=== PATIENT | female | born 1975 | race Caucasian/White ===

== ENCOUNTER → 2024-10-21 | Outpatient (CLI) | payer MEDICARE, MEDICAID, SELFPAY ==
[2024-10-21 17:33] LABS: Basophils # (Auto) 0.0 Thou/mm3 (0.0-0.2); Basophils % (Auto) 0 % (0-2.5); Eosinophils # (Auto) 0.1 Thou/mm3 (0.0-0.5); Eosinophils % (Auto) 2 % (0-10); Hematocrit 42.4 % (36.0-46.0); Hemoglobin 14.4 g/dL (12.0-16.0); Immature Granulocytes Auto 0.01 Thou/mm3 (0.00-0.00); Lymphocytes # (Auto) 1.6 Thou/mm3 (1.0-4.8); Lymphocytes % (Auto) 29 % (10-50); Mean Corpuscular HGB Conc 34.0 g/dl (31.0-37.0); Mean Corpuscular Hemoglobin 31.9 pg (25.0-35.0); Mean Corpuscular Volume 94 fL (80-100); Monocytes # (Auto) 0.4 Thou/mm3 (0.0-0.8); Monocytes % (Auto) 8 % (0-12); Neutrophils # (Auto) 3.3 Thou/mm3 (1.8-7.7); Neutrophils % (Auto) 61 % (37-80); Nucleated Red Blood Cell # 0.00 Thou/mm3 (0.00-0.00); Nucleated Red Blood Cell % 0 /100 WBC (0); Platelet Count 313 Thou/mm3 (140-440); RDW Standard Deviation 44.4 fL (36.4-46.3); Red Blood Count 4.51 Miln/mm3 (4.00-5.20); White Blood Count 5.4 Thou/mm3 (3.6-11.0)
[2024-10-21 18:02] LABS: Alanine Aminotransferase 9 U/L (10-49); Albumin, Serum 4.1 gm/dL (3.5-5.0); Albumin/Globulin Ratio 1.5 (1.2-2.2); Alkaline Phosphatase 63 U/L (46-116); Anion Gap 14 (7-16); Aspartate Amino Transferase 16 U/L (0-34); BUN/Creatinine Ratio 20 Ratio (12-20); Bilirubin,Total 0.8 mg/dL (0.3-1.2); Blood Urea Nitrogen 12 mg/dL (9-23); Calcium 9.0 mg/dL (8.3-10.6); Calcium (Corrected) 9.0 mg/dL (8.5-10.1); Carbon Dioxide 24.5 mMol/L (20.0-31.0); Chloride 105 mMol/L (98-107); Creatinine (Component) 0.6 mg/dL (0.6-1.3); Globulin 2.7 gm/dL (2.3-3.5); Glucose 103 mg/dL (74-106); Osmolality,Calculated 284 (275-295); Potassium 3.3 mMol/L (3.4-5.1); Sodium 143 mMol/L (136-145); Total Protein 6.8 gm/dL (5.7-8.2); eGFR > 60 See Note
== END | disposition home or self-care (01) ==
LOC: COPL 16:57
PROVIDERS: PCP Internal Medicine; Referring Provider Internal Medicine; Visit Provider Internal Medicine
DX: G35 Multiple sclerosis (principal); K21.9 Gastro-esophageal reflux disease without esophagitis; Z82.49 Family history of ischemic heart disease and other diseases of the circulatory system
CPT/HCPCS: 36415; 80053; 80061; 81001; 82306; 83036; 84443; 85025

== ENCOUNTER → 2024-10-25 | Outpatient (CLI) | payer MEDICARE, MEDICAID, SELFPAY ==
[2024-10-25 16:17] LABS: Collection Type, Urine Clean Catch
[2024-10-25 17:42] LABS: Bacteria,Urine 3+; Bilirubin,Urine Negative (Negative); Blood,Urine Negative (Negative); Clarity,Urine Turbid (Clear/Hazy); Color,Urine Yellow (Lt Yel-Yel); Glucose, Urine Negative (Negative); Ketones,Urine Negative (Negative); Leukocyte Esterase,Urine Positive (Negative); Nitrite,Urine Positive (Negative); PH,Urine 6.0 (5.0-7.0); Protein,Urine Negative (Neg - Trace); RBC,Urine 4 /hpf (0-3); Specific Gravity,Urine 1.024 (1.001-1.035); Squamous Epithelial Cell,Urine 10 /hpf (0-5); Urobilinogen,Urine Negative mg/dL (0.0-1.0); WBC,Urine 12 /hpf (0-5)
== END | disposition home or self-care (01) ==
LOC: SLDO 15:51
PROVIDERS: PCP Internal Medicine; Referring Provider Internal Medicine; Visit Provider Internal Medicine
DX: G35 Multiple sclerosis (principal); K21.9 Gastro-esophageal reflux disease without esophagitis; Z82.49 Family history of ischemic heart disease and other diseases of the circulatory system
CPT/HCPCS: 81001

== ENCOUNTER → 2024-10-27 | Outpatient (CLI) | payer MEDICARE, MEDICAID, SELFPAY ==
[2024-10-27 16:46] LABS: Collection Type, Urine Clean Catch
[2024-10-27 17:36] LABS: Bacteria,Urine Rare; Bilirubin,Urine Negative (Negative); Blood,Urine Negative (Negative); Clarity,Urine Turbid (Clear/Hazy); Color,Urine Lt-Yellow (Lt Yel-Yel); Glucose, Urine Negative (Negative); Ketones,Urine Negative (Negative); Leukocyte Esterase,Urine Positive (Negative); Nitrite,Urine Positive (Negative); PH,Urine 7.0 (5.0-7.0); Protein,Urine Negative (Neg - Trace); RBC,Urine 1 /hpf (0-3); Specific Gravity,Urine 1.015 (1.001-1.035); Squamous Epithelial Cell,Urine 7 /hpf (0-5); Urobilinogen,Urine Negative mg/dL (0.0-1.0); WBC,Urine 15 /hpf (0-5)
== END | disposition home or self-care (01) ==
LOC: SLDO 16:43
PROVIDERS: PCP Internal Medicine; Referring Provider Internal Medicine; Visit Provider Internal Medicine
DX: R35.0 Frequency of micturition (principal)
CPT/HCPCS: 81001; 87077; 87086; 87186

== ENCOUNTER → 2024-11-07 | Outpatient (CLI) | payer MEDICARE, MEDICAID, SELFPAY ==
[2024-11-07 16:56] LABS: Collection Type, Urine Clean Catch; RBC,Urine 0 /hpf (0-3)
[2024-11-07 17:46] LABS: Bacteria,Urine 4+; Bilirubin,Urine Negative (Negative); Blood,Urine Negative (Negative); Color,Urine Lt-Yellow (Lt Yel-Yel); Glucose, Urine Negative (Negative); Ketones,Urine Negative (Negative); Leukocyte Esterase,Urine Negative (Negative); Nitrite,Urine Negative (Negative); PH,Urine 6.0 (5.0-7.0); Protein,Urine Negative (Neg - Trace); Specific Gravity,Urine 1.016 (1.001-1.035); Squamous Epithelial Cell,Urine 5 /hpf (0-5); Urobilinogen,Urine Negative mg/dL (0.0-1.0); WBC,Urine < 1 /hpf (0-5)
[2024-11-07 17:50] LABS: Clarity,Urine Hazy (Clear/Hazy)
== END | disposition home or self-care (01) ==
LOC: SLDO 16:51
PROVIDERS: PCP Family Medicine; Referring Provider Student in an Organized Health Care Education/Training Program; Visit Provider Student in an Organized Health Care Education/Training Program
DX: N39.0 Urinary tract infection, site not specified (principal)
CPT/HCPCS: 81001; 87086

== ENCOUNTER → 2024-11-25 | Outpatient (CLI) | payer MEDICARE, MEDICAID, SELFPAY ==
[2024-11-25 17:09] LABS: Vitamin D 25 Hydroxy Total 20.4 ng/mL (7.3-40.2)
== END | disposition home or self-care (01) ==
LOC: COPL 15:14
PROVIDERS: PCP Internal Medicine; Referring Provider Internal Medicine; Visit Provider Internal Medicine
DX: E55.9 Vitamin D deficiency, unspecified (principal); I67.9 Cerebrovascular disease, unspecified; G35 Multiple sclerosis; R53.83 Other fatigue
CPT/HCPCS: 36415; 80061; 82306; 83036; 84443

== ENCOUNTER → 2024-11-28 | Outpatient (CLI) | payer MEDICARE, MEDICAID, SELFPAY | END | disposition home or self-care (01) | LOC: SLDO 17:09 | PROVIDERS: PCP Internal Medicine; Referring Provider Internal Medicine; Visit Provider Internal Medicine | DX: N39.0 Urinary tract infection, site not specified (principal) | CPT/HCPCS: 87077; 87086; 87186 ==

== ENCOUNTER → 2024-12-21 | Outpatient (CLI) | payer MEDICARE, MEDICAID, SELFPAY ==
[2024-12-21 10:45] LABS: Collection Type, Urine Clean Catch
[2024-12-21 12:28] LABS: Bacteria,Urine 3+; Bilirubin,Urine Negative (Negative); Blood,Urine Negative (Negative); Calcium Oxalate Crystals,Urine 3+; Glucose, Urine Negative (Negative); Ketones,Urine Negative (Negative); Leukocyte Esterase,Urine Positive (Negative); Nitrite,Urine Positive (Negative); PH,Urine 5.5 (5.0-7.0); Protein,Urine Trace (Neg - Trace); RBC,Urine 3 /hpf (0-3); Specific Gravity,Urine 1.023 (1.001-1.035); Squamous Epithelial Cell,Urine 8 /hpf (0-5); Urobilinogen,Urine Negative mg/dL (0.0-1.0); WBC,Urine 69 /hpf (0-5)
[2024-12-21 12:33] LABS: Clarity,Urine Cloudy (Clear/Hazy); Color,Urine Lt-Yellow (Lt Yel-Yel)
== END | disposition home or self-care (01) ==
LOC: SLDO 10:40
PROVIDERS: PCP Internal Medicine; Referring Provider Internal Medicine; Visit Provider Internal Medicine
DX: N39.0 Urinary tract infection, site not specified (principal)
CPT/HCPCS: 81001; 87077; 87086; 87186

== ENCOUNTER 2025-01-02 07:27 | Inpatient (IN) | payer MEDICARE, MEDICAID, SELFPAY ==
[2025-01-02] VITALS (9 sets, daily range): BP systolic 118–153; BP diastolic 56–85; PULSE 67–133; RESP 18–94; TEMP 36.2–37.1; O2SAT 92–96; BMI 28.6; BMI 30.2
--- NOTE | 2025-01-02 | XR_ITS ---
Examination: MRI of brain without intravenous contrast. MRI brain with intravenous contrast. Date and time of exam:January 02, 2025, 1227 hours, comparison June 25, 2022 INDICATIONS: Diagnosis demyelinating disease, leg weakness cramping body shaking, regional diagnosis MS 20 years ago Technique: Multiple axial and sagittal images of the brain to been obtained. Siemens high-resolution 1.52 Krystina short bore scanner utilized. Sagittal sections, T1 weighted images, TR 500, TE 14, are performed. Axial sections proton-density and T2-weighted images have been obtained. Inversion recovery axial images, TR 9260, TE 111, TR 2500. Diffusion weighted images, axial sections, TR 4800, TE 128, B value 1000. Axial sections, ADC map, TR 4800, TE 128. Axial and coronal images were also obtained post 19 cc gadolinium administered intravenously. Findings:: Enlargement of the sella turcica is not present. The optic chiasm and infundibular stalk are not remarkable. There is no localized enlargement of the medulla or hieu. Fourth ventricle and cerebellar tonsils appear normal in position. No subacute area of hemorrhage density is seen. Fourth ventricle is midline. Mass in the cerebellopontine angle region is not evident. 7th and 8th nerve complexes exhibit symmetry Globes are symmetrical Orbital musculature including medial lateral rectus muscles do not exhibit abnormality Increased white matter signal is prominent Effacement of the cortical sulcal markings is not identified. Mass effect upon the ventricular system is not identified. Diffusion-weighted images demonstrate no focus of restricted diffusion Contrast images demonstrate no abnormal contrast enhancement Impression: No significant change in prominent punctate foci increased signal in the white matter, demyelinating disease
--- NOTE | 2025-01-02 | XR_ITS ---
Examinations: MRA brain with intravenous contrast. MRA neck with intravenous contrast Indications: Onset leg weakness and cramping body shaking tremors one month, diagnosis multiple sclerosis Technique: Multiple axial and sagittal images of the brain have been obtained Siemens high-resolution 1.5 Krystina short bore scanner is utilized. Contrast images have been obtained post intravenous 19 cc Gadolinium. Angiographic images of neck and brain are obtained pre and post contrast. 3-D post processing performed, including brain, extracranial neck arterial maximum intensity projections Findings: No common carotid carotid bifurcation or internal carotid artery stenoses Dominant left vertebral artery Petrous juxtasellar portions internal carotid arteries fill M1 segments middle cerebral arteries middle cerebral artery trifurcation vessels fill as well as basilar artery and posterior cerebral branches No area of aneurysmal dilatation No new vasculature IMPRESSION: No significant neck arterial stenoses No cerebral large vessel arterial occlusions or thrombus
--- NOTE | 2025-01-02 | XR_ITS ---
Examination: MRA neck without contrast TECHNIQUE: MRA brain neck images without intravenous contrast, 3-D angiographic images 3-D postprocessing including maximum projection images Date and time: January 02, 2025, 12:55 PM INDICATIONS: Leg weakness cramping body shaking one month No significant common carotid carotid bifurcation or internal carotid artery stenoses Dominant left vertebral artery in the neck with no critical stenoses IMPRESSION: No significant neck arterial stenoses
--- NOTE | 2025-01-02 07:34 | EKG_ITS ---
[facility] Test Date: 2025-01-02 Pat Name: DOMENIC CHOI Department: Room: - Gender: Female [employer]: : 1975 Requested By: Irma Nj Order Number: [id number] Reading MD: Irma Nj Measurements Intervals [place] Rate: 119 P: 19 [place]: 133 QRS: 21 QRSD: 84 T: 28 QT: 338 QTc: 477 Interpretive Statements SINUS TACHYCARDIA MODERATE ST DEPRESSION [0.05+ mV ST DEPRESSION] Compared to ECG 06/25/2022 14:41:02 ST (T wave) deviation now present Sinus rhythm no longer present Incomplete right bundle-branch block no longer present /store/S0/[id number].pdf
--- NOTE | 2025-01-02 07:42 | XR_ITS ---
Examination: AP chest single view TECHNIQUE: Portable AP sitting chest single view Date and time: December 24 [id number], 0802 hours INDICATIONS: Shortness of breath today. FINDINGS: Atelectasis versus early pneumonia left base Normal heart size The osseous structures are demineralized IMPRESSION: Atelectasis versus early pneumonia left base
--- NOTE | 2025-01-02 07:46 | EDNOTE_ITS ---
ED SOB =RME/HPI General Chief Complaint: Shortness of Breath/Dyspnea Stated Complaint: SOB Time Seen by Provider: 01/02/25 07:31 Arrival date/time: 01/02/25 07:27 RME / HPI RME / HPI Narrative: 49-year-old female here for evaluation of palpitations with shortness of breath that onset about 4:00 this morning. States that she has been dealing with episodes of palpitations on and off the past few weeks. Did have a consult with her clinical operations manager who saw her recently for an EKG. Is planning to send her out for a Holter monitor and cardiac echo though this has not yet been scheduled. Notes that she has also been having some sharp pains to her left breast this morning that lasted for a few seconds and resolved. Feels that in addition to the symptoms increased nervousness and with that her body feels like it is locked up. Notes that this happens sometimes when she feels nervous or when she has MS flares. Related Data Home Medications ?Medication ?Instructions ?Recorded ?Confirmed ibuprofen 800 mg tablet 800 mg PO Q6HR PRN PAIN #0 t abs 07/26/14 06/27/22 lorazepam 0.5 mg tablet 0.5 mg PO BID PRN Anxiety #0 tabs 07/26/14 06/27/22 Allergies Allergy/AdvReac Type Severity Reaction Status Date / Time codeine Allergy Severe VOMITING Verified 06/17/17 06:08 AND HIVES erythromycin base Allergy Severe VOMITING Verified 06/17/17 06:08 AND HIVES adhesive tape Allergy Verified 06/19/17 09:37 promethazine AdvReac Severe PANIC Verified 06/17/17 06:08 ATTACKS hydromorphone AdvReac Intermediate SEVERE Verified 06/17/17 06:08 NAUSEA AND VOMITING morphine AdvReac Unknown SEVERE Verified 06/17/17 06:08 NAUSEA AND VOMITING Ocrevis Allergy Unknown Uncoded 06/29/22 21:04 Review of Systems Review of Systems Systems Reviewed: All systems reviewed, normal except as documented Past Medical History Past Medical History NEUROLOGIC: Positive Multiple Sclerosis HEMATOLOGIC: Positive Anemia PSYCHO/SOCIAL: Positive Anxiety OTHER HISTORY: Positive Autoimmune Disease and Blood Transfusions Family History FAMILY HISTORY: Positive Family Cardiac Disorders and Family Cancer Surgical History SURGICAL: Positive Hysterectomy and Tubal Ligation Social History SMOKING STATUS: Former smoker SECOND HAND EXPOSURE: No ED Exam Narrative Physical exam: Constitutional: Awake, alert, nontoxic, anxious, uncomfortable. HEENT: Normocephalic, atraumatic, extraocular movements intact. Neck: Supple CV: Tachycardic rate and regular rhythm, no murmurs/rubs/gallops Lungs: Clear to auscultation BL, no respiratory distress. Abd: Soft, NT, ND, no HSM noted to palpation Neuro: AAOx3, CN 2-12 GIBL, no acute neuro deficit noted. Skin: Warm, dry, intact Course Course Course Narrative: 0745h: Patient coming in for symptoms of palpitations with feeling short of breath and some sharp chest pains this morning. Patient is noted to be tacky in the 110's, sinus rhythm, initial EKG with no significant acute abnormalities noted. Patient with history of gastric ulcer, multiple sclerosis, and stroke in the past. No known history of CAD. Is followed by clinical operations manager for her palpitations. Initial workup ordered and pending at this time. 0930h: Checked on patient, she notes that her breathing is improved as has the chest pain. Notes that her legs are still quite stiff and this has happened with previous MS flares. Last flare was in 2022 for which she was admitted for high-dose IV steroids. Stating that currently feels that she is having heartburn in [her] neck which she has felt with previous MS flares. Currently awaiting remainder of labs. Will add on MRI brain at this time. Likely will require admission given the worsening symptoms from baseline with the inability to move her legs very well at this time (patient baseline can walk short distances with a walker and uses wheelchair at home). [id number]: I spoke with neurologist Dr. Shaffer, she recommends MRI/MRA of the head/neck. Will wait to decide which steroids to start once results are back. 1350h: I discussed MRI findings with neurologist Dr. Shaffer, she recommends admission and 1g Solumedrol QDAY for the next 3 days. D/w hospitalist team B for admit. Quality Measures none Orders Category Date Time Status COVID-19 Screening Questionnaire NOW Care 01/02/25 13:52 Active National Sales Trainer NOW Care 01/02/25 07:42 Active Continuous Pulse Oximetry NOW Care 01/02/25 07:42 Completed Decision to Admit X1 Care 01/02/25 13:52 Active EKG (ED ONLY) *Do not use* NOW Care 01/02/25 07:34 Completed Insert IV STAT Care 01/02/25 07:42 Active MRI Screening NOW Care 01/02/25 09:36 Active MRI Screening NOW Care 01/02/25 09:36 Completed MRI Screening NOW Care 01/02/25 11:51 Completed MRI Screening NOW Care 01/02/25 11:52 Completed EKG (ED Only) Stat Exams 01/02/25 07:34 Draft MR angio neck w con Stat Exams 01/02/25 Completed MR angio neck wo con Stat Exams 01/02/25 Completed MR head/brain wo/w con Stat Exams 01/02/25 Completed XR chest 1V portable Stat Exams 01/02/25 07:42 Completed B-Type Natriuretic Peptide Stat Lab 01/02/25 07:51 Completed CBC Stat Lab 01/02/25 07:51 Completed CMP [Comprehensive Metabolic Panel] Stat Lab 01/02/25 07:51 Completed D-Dimer Stat Lab 01/02/25 07:51 Completed Drug Screen,Urine Stat Lab 01/02/25 07:42 Ordered Free T4 (Free Thyroxine) Stat Lab 01/02/25 07:51 Completed Magnesium Stat Lab 01/02/25 07:51 Completed Partial Thromboplastin Time Stat Lab 01/02/25 07:51 Completed Prothrombin Time with INR Stat Lab 01/02/25 07:51 Completed Thyroid Stimulating Hormone Stat Lab 01/02/25 07:51 Completed Troponin I Stat Lab 01/02/25 07:51 Completed Troponin I Urgent Lab 01/02/25 09:52 Completed Urinalysis Stat Lab 01/02/25 07:42 Ordered Aspirin Chew Med 01/02/25 07:45 Discontinued 324 mg PO X1 ONE Famotidine Inj [Pepcid Inj] Med 01/02/25 08:10 Discontinued 20 mg IVP X1 ONE Famotidine [Pepcid] Med 01/02/25 07:44 Discontinued 40 mg PO X1 ONE LORazepam [Ativan] Med 01/02/25 07:41 Discontinued 0.5 mg PO X1 ONE MethylPREDNISolone. [SoluMEDROL Inj] 1,000 mg Med 01/02/25 14:00 Active Sodium Chloride 0.9% 250 ml [Ns] 250 ml IV X1 Midazolam Inj [Versed Inj] Med 01/02/25 08:10 Discontinued 1 mg IVP X1 ONE Midazolam Inj [Versed Inj] Med 01/02/25 12:04 Discontinued 1 mg IVP X1 ONE Ondansetron Inj [Zofran Inj] Med 01/02/25 08:10 Discontinued 4 mg IVP X1 ONE Pantoprazole Inj [Protonix Inj] Med 01/02/25 07:44 Discontinued 40 mg IVP X1 ONE Vital Signs Vital signs: Vital Signs Temperature 97.9 F 01/02/25 07:29 Pulse Rate 133 H 01/02/25 07:29 Respiratory Rate 20 01/02/25 07:29 Blood Pressure 153/80 H 01/02/25 07:29 Pulse Oximetry (%) 95 01/02/25 07:29 Oxygen Delivery Method Nasal Cannula 01/02/25 07:29 Shortness of Breath / Dyspnea MDM Narrative MDM Narrative:: Jennie Xiong am scribing for and in the presence of Dr. Marquez. Patient data External records reviewed:: [facility] previous records (I reviewed admission from 06/25/2022 through 06/30/2022 for work-up and management of multiple sclerosis flare versus CVA. ) and EMS form Clinical information provided by:: patient and EMS Social determinants that could affect healthcare access:: none Patient has the following chronic illnesses:: MS How is presenting disease/condition affected by chronic disease/condition?: exacerbated by Evaluation data The following diagnostics were reviewed and interpreted by me:: lab results, radiology exam(s) and EKG tracing(s) (EKG @ 07:33 AM, sinus tachycardia, rate 119, no acute ischemic changes, no STEMI. ) Lab and/or radiology exams considered but not ordered:: None Interpretation Summary: Ordering Physician: Irma Marquez MD Date of Service: 01/02/25 Procedure(s): XR chest 1V portable Accession Number(s): [id number] cc: Barber Ibarra MD; Irma Marquez MD~ Examination: AP chest single view TECHNIQUE: Portable AP sitting chest single view Date and time: December [id number], 0802 hours INDICATIONS: Shortness of breath today. FINDINGS: Atelectasis versus early pneumonia left base Normal heart size The osseous structures are demineralized IMPRESSION: Atelectasis versus early pneumonia left base Dictated By: Barber Ibarra MD Signed By: <Electronically signed by Barber Ibarra MD in OV>01/02/25 0900 Ordering Physician: Irma Marquez MD Date of Service: 01/02/25 Procedure(s): MR head/brain wo/w con Accession Number(s): [id number] cc: Zach Pacheco; Barber Ibarra MD; Irma Marquez MD~ Examination: MRI of brain without intravenous contrast. MRI brain with intravenous contrast. Date and time of exam:January 02, 2025, 1227 hours, comparison June 25, 2022 INDICATIONS: Diagnosis demyelinating disease, leg weakness cramping body shaking, regional diagnosis MS 20 years ago Technique: Multiple axial and sagittal images of the brain to been obtained. Siemens high-resolution 1.52 Krystina short bore scanner utilized. Sagittal sections, T1 weighted images, TR 500, TE 14, are performed. Axial sections proton-density and T2-weighted images have been obtained. Inversion recovery axial images, TR 9260, TE 111, TR 2500. Diffusion weighted images, axial sections, TR 4800, TE 128, B value 1000. Axial sections, ADC map, TR 4800, TE 128. Axial and coronal images were also obtained post 19 cc gadolinium administered intravenously. Findings:: Enlargement of the sella turcica is not present. The optic chiasm and infundibular stalk are not remarkable. There is no localized enlargement of the medulla or hieu. Fourth ventricle and cerebellar tonsils appear normal in position. No subacute area of hemorrhage density is seen. Fourth ventricle is midline. Mass in the cerebellopontine angle region is not evident. 7th and 8th nerve complexes exhibit symmetry Globes are symmetrical Orbital musculature including medial lateral rectus muscles do not exhibit abnormality Increased white matter signal is prominent Effacement of the cortical sulcal markings is not identified. Mass effect upon the ventricular system is not identified. Diffusion-weighted images demonstrate no focus of restricted diffusion Contrast images demonstrate no abnormal contrast enhancement Impression: No significant change in prominent punctate foci increased signal in the white matter, demyelinating disease Dictated By: Barber Ibarra MD Signed By: <Electronically signed by Barber Ibarra MD in OV> 01/02/25 133 Ordering Physician: Irma Marquez MD Date of Service: 01/02/25 Procedure(s): MR angio neck wo con Accession Number(s): [id number] cc: Zach Pacheco; Barber Ibarra MD; Irma Marquez MD~ Examinations: MRA brain with intravenous contrast. MRA neck with intravenous contrast Indications: Onset leg weakness and cramping body shaking tremors one month, diagnosis multiple sclerosis Technique: Multiple axial and sagittal images of the brain have been obtained Siemens high-resolution 1.5 Krystina short bore scanner is utilized. Contrast images have been obtained post intravenous 19 cc Gadolinium. Angiographic images of neck and brain are obtained pre and post contrast. 3-D post processing performed, including brain, extracranial neck arterial maximum intensity projections Findings: No common carotid carotid bifurcation or internal carotid artery stenoses Dominant left vertebral artery Petrous juxtasellar portions internal carotid arteries fill M1 segments middle cerebral arteries middle cerebral artery trifurcation vessels fill as well as basilar artery and posterior cerebral branches No area of aneurysmal dilatation No new vasculature IMPRESSION: No significant neck arterial stenoses No cerebral large vessel arterial occlusions or thrombus Dictated By: Barber Ibarra MD Signed By: <Electronically signed by Barber Ibarra MD in OV> 01/02/25 1333 Ordering Physician: Irma Marquez MD Date of Service: 01/02/25 Procedure(s): MR angio neck w con Accession Number(s): [id number] cc: Zach Pacheco; Barber Ibarra MD; Irma Marquez MD~ Examination: MRA neck without contrast TECHNIQUE: MRA brain neck images without intravenous contrast, 3-D angiographic images 3-D postprocessing including maximum projection images Date and time: January 02, 2025, 12:55 PM INDICATIONS: Leg weakness cramping body shaking one month No significant common carotid carotid bifurcation or internal carotid artery stenoses Dominant left vertebral artery in the neck with no critical stenoses IMPRESSION: No significant neck arterial stenoses Dictated By: Barber Ibarra MD Signed By: <Electronically signed by Barber Ibarra MD in OV> 01/02/25 1335 Medications / Prescriptions Medications or Prescriptions considered but not ordered:: None Medication administrations:: Medication Administration History Methylprednisolone Sodium Succinate 1,000 mg/ Sodium Chloride 266 mls @ 266 mls/hr IV X1 ONE Stop: 01/02/25 14:59 Discontinued Medications Aspirin (Aspirin 81 Mg Chew) 324 mg PO X1 ONE Stop: 01/02/25 07:46 Last Admin: 01/02/25 07:59 Dose: Not Given Documented By: HARPREET Non-Admin Reason: Patient Refused Famotidine (Famotidine 20 Mg Tablet) 40 mg PO X1 ONE Stop: 01/02/25 07:45 Last Admin: 01/02/25 08:00 Dose: Not Given Documented By: HARPREET Non-Admin Reason: Patient Refused Famotidine (Famotidine Inj 10 Mg/Ml Vial 2 Ml) 20 mg IVP X1 ONE Stop: 01/02/25 08:11 Last Admin: 01/02/25 08:31 Dose: 20 mg Documented By: MASTER Lorazepam (Lorazepam 0.5 Mg Tablet) 0.5 mg PO X1 ONE Stop: 01/02/25 07:42 Last Admin: 01/02/25 08:00 Dose: Not Given Documented By: HARPREET Non-Admin Reason: Patient Refused Midazolam HCl (Midazolam Inj 1 Mg/Ml Vial 2 Ml) 1 mg IVP X1 ONE Stop: 01/02/25 08:11 Last Admin: 01/02/25 08:31 Dose: 1 mg Documented By: ARF Midazolam HCl (Midazolam Inj 1 Mg/Ml Vial 2 Ml) 1 mg IVP X1 ONE Stop: 01/02/25 12:05 Last Admin: 01/02/25 12:11 Dose: 1 mg Documented By: DB Ondansetron HCl (Ondansetron Inj 2 Mg/Ml Inj 2 Ml) 4 mg IVP X1 ONE; Protocol Stop: 01/02/25 08:11 Last Admin: 01/02/25 08:30 Dose: 4 mg Documented By: ARF Pantoprazole Sodium (Pantoprazole Inj 40 Mg Vial) 40 mg IVP X1 ONE Stop: 01/02/25 07:45 Last Admin: 01/02/25 07:56 Dose: 40 mg Documented By: DB See above Consultations Consultation(s) initiated? (list below): Yes Consultation #1 (Physician, Specialty, Details): See course Diagnosis Shortness of Breath Differential Diagnosis: community acquired pneumonia, pulmonary embolism and other (Chest pain ) Most likely diagnosis given after review of the tests above:: MS flare Admission Indicated Admission indicated?: indicated Admission Request Was there a request for admission?: Yes Admission Attestation Admission request attestation: Discussed case with [] from Hospitalist service regarding admission. Discussed patients ED course, exam findings, labs, and radiology results. The Hospitalist [agrees,declines] to accept the patient for admission. Disposition Plan Disposition Plan: Admit Discharge Plan Plan Patient Disposition: Admit Acute Care w/in Hospital Prescriptions/Referrals Prescriptions/Med Rec: No Action ibuprofen 800 MG tablet 800 mg PO Q6HR PRN (Reason: PAIN) Qty: 0 lorazepam 0.5 MG tablet 0.5 mg PO BID PRN (Reason: Anxiety) Qty: 0 Referrals: Zach Pacheco [Primary Care Provider] - In 1 week Problem List Clinical Impression: Exacerbation of multiple sclerosis Patient/Caregiver Discharge Instructions Print Language: [place] Stand Alone Forms: Rissa Award Info., Patient Portal Info Letter
[2025-01-02 08:04] LABS: Basophils # (Auto) 0.0 Thou/mm3 (0.0-0.2); Basophils % (Auto) 1 % (0-2.5); Eosinophils # (Auto) 0.0 Thou/mm3 (0.0-0.5); Eosinophils % (Auto) 1 % (0-10); Hematocrit 44.9 % (36.0-46.0); Hemoglobin 15.1 g/dL (12.0-16.0); Immature Granulocytes Auto 0.01 Thou/mm3 (0.00-0.00); Lymphocytes # (Auto) 1.4 Thou/mm3 (1.0-4.8); Lymphocytes % (Auto) 24 % (10-50); Mean Corpuscular HGB Conc 33.6 g/dl (31.0-37.0); Mean Corpuscular Hemoglobin 31.6 pg (25.0-35.0); Mean Corpuscular Volume 94 fL (80-100); Monocytes # (Auto) 0.6 Thou/mm3 (0.0-0.8); Monocytes % (Auto) 10 % (0-12); Neutrophils # (Auto) 3.8 Thou/mm3 (1.8-7.7); Neutrophils % (Auto) 65 % (37-80); Nucleated Red Blood Cell # 0.00 Thou/mm3 (0.00-0.00); Nucleated Red Blood Cell % 0 /100 WBC (0); Platelet Count 365 Thou/mm3 (140-440); RDW Standard Deviation 46.0 fL (36.4-46.3); Red Blood Count 4.78 Miln/mm3 (4.00-5.20); White Blood Count 5.8 Thou/mm3 (3.6-11.0)
[2025-01-02 08:20] LABS: B-Type Natriuretic Peptide < 20 pg/mL (0-100)
[2025-01-02] MEDS: ONDANSETRON INJ 2 MG/ML INJ 2 ML 4 MG IVP (08:30)
[2025-01-02] MEDS: FAMOTIDINE INJ 10 MG/ML VIAL 2 ML 20 MG IVP (08:31)
[2025-01-02] MEDS: MIDAZOLAM INJ 1 MG/ML VIAL 2 ML IVP ×2 (08:31→12:11)
[2025-01-02 08:33] LABS: Alanine Aminotransferase 9 U/L (10-49); Albumin, Serum 4.4 gm/dL (3.5-5.0); Albumin/Globulin Ratio 1.8 (1.2-2.2); Alkaline Phosphatase 58 U/L (46-116); Anion Gap 13 (7-16); Aspartate Amino Transferase 15 U/L (0-34); BUN/Creatinine Ratio 9 Ratio (12-20); Bilirubin,Total 0.8 mg/dL (0.3-1.2); Blood Urea Nitrogen 7 mg/dL (9-23); Calcium 9.8 mg/dL (8.3-10.6); Calcium (Corrected) 9.8 mg/dL (8.5-10.1); Carbon Dioxide 21.3 mMol/L (20.0-31.0); Chloride 107 mMol/L (98-107); Creatinine (Component) 0.8 mg/dL (0.6-1.3); Estimated Creatinine Clearance 99.5 mL/min (>60); Globulin 2.5 gm/dL (2.3-3.5); Glucose 109 mg/dL (74-106); Magnesium 1.9 mg/dL (1.6-2.6); Osmolality,Calculated 280 (275-295); Potassium 3.6 mMol/L (3.4-5.1); Sodium 141 mMol/L (136-145); Total Protein 6.9 gm/dL (5.7-8.2); Troponin I < 0.002 ng/mL (0.0-0.045); eGFR > 60 See Note
[2025-01-02 08:45] LABS: INR 1.0 (0.9-1.3); Partial Thromboplastin Time 29.3 Seconds (22.0-36.0); Prothrombin Time 10.5 Seconds (9.0-12.2)
[2025-01-02 09:38] LABS: D-Dimer < 250 ng/mL (<600)
[2025-01-02 10:03] LABS: Free T4 (Free Thyroxine) 1.24 ng/dL (0.89-1.76); Thyroid Stimulating Hormone 2.70 uIU/mL (0.55-4.78)
[2025-01-02 10:30] LABS: Troponin I < 0.020 ng/mL (0.0-0.045)
--- NOTE | 2025-01-02 15:09 | ESHP_ITS ---
<Statement entered by Damian Rachel MD - 01/03/25 17:11> I have personally seen and examined the patient, agree with residents assessment and plan Patient plan of care was discussed with the attending physician, Dr. Gosia Rachel, PGY2 Documentation for date of: 01/02/25 HPI History of Present Illness History of present illness: Patient is a 49-year-old female with past medical history of multiple sclerosis since 2002, migraines, recurrent UTIs who presents on 01/02 for chief complaint of shortness of breath that started around 4 AM this morning, accompanied with locking of her extremities. Reports similar episodes during previous MS flares, last episode 2022. Follows Dr. Wilks at [facility], attempted new IV drip a couple months ago but experienced adverse reaction and was discontinued. Also reports history of CVA but was ruled out at last admission in 06/2023. Endorses residual left sided weakness, with intermittent freezing of her extremities. Otherwise independent and ambulatory with walker at home. Of note, patient has also been experiencing urinary urgency with foul smelling urine for the past 3 weeks. Was treated with 2 full courses of Macrobid and another 7 day course of Bactrim (was only able to tolerate 4 days). Patient has urinary incontinence and decreased sensation below her hips secondary to her MS, wears diapers at home. Endorses accompanying intermittent palpitations for the past couple of weeks. Saw Dr. Lowry within the past couple of weeks, was to be put on Holter monitor and obtain echo at her next upcoming appointment. Denies chest pain at this time. ED Course: -Initial vitals were BP 153/80, HR 133, afebrile, saturating well on room air -Labs significant for CBC unremarkable. CMP unremarkable. Troponins are negative. TSH and T4 within normal limits. EKG shows sinus tachycardia. No ST or T wave abnormalities noted. -Imaging included brain MRI shows repeat pattern of demyelinating disease. Neck MRA negative for stenosis. CXR concerning for possible atelectasis versus left base pneumonia. -In the ED, patient was given Protonix x 1, Zofran x 1, famotidine, midazolam 1 mg x 2. -Patient was admitted for MS flare. Review of Systems Review of systems otherwise negative except what is mentioned above. Past Medical History: As above. Surgical History: Hysterectomy. Social History: Former social smoker, quit 20 years ago. Denies current alcohol use, occasionally uses marijuana Current Medications: pending official med rec Allergies: Codeine (vomiting and hives), erythromycin base, adhesive tape, promethazine (panic attacks), hydromorphone and morphine (severe nausea vomiting) Exam Vital Signs Temp Pulse Resp BP Pulse Ox O2 Del Method 98.1 F 94 18 118/77 95 Room Air 01/02/25 13:00 01/02/25 13:00 01/02/25 13:00 01/02/25 13:00 01/02/25 13:00 01/02/25 13:00 Narrative Exam Physical Exam General: Awake, in mild distress secondary to pain from flare. Conversational and non-toxic appearing. Tearful and anxious. HEENT: Normocephalic, atraumatic, mucous membranes moist. Heart: Tachycardic. Regular rate and rhythm, normal S1 and S2, no murmurs. Lungs: Clear to auscultation with no wheezing or crackles. Abdomen: Soft, nondistended, nontender, positive bowel sounds. No guarding or rebound tenderness. Neurologic: Alert and oriented x3. Unable to move lower extremities, rigid. Left upper extremity contracted, chronic. 5/5 strength in right upper extremity. Sensation intact throughout. Extremities: Swollen ankles bilaterally but no pitting edema appreciated. Skin: No rash or ecchymoses. Results: Labs 01/03/25 04:35 01/03/25 04:35 Labs: Short CBC 01/02/25 Range/Units 07:51 WBC 5.8 (3.6-11.0) Thou/mm3 Hgb 15.1 (12.0-16.0) g/dL Hct 44.9 (36.0-46.0) % Plt Count 365 (140-440) Thou/mm3 BMP 01/02/25 07:51 Sodium 141 Potassium 3.6 Chloride 107 Carbon Dioxide 21.3 BUN 7 L Creatinine 0.8 Glucose 109 H Calcium 9.8 Cardiac Enzymes 01/02/25 01/02/25 Range/Units 07:51 09:52 Troponin I < 0.002 < 0.020 (0.0-0.045) ng/mL Liver Function 01/02/25 Range/Units 07:51 Total Bilirubin 0.8 (0.3-1.2) mg/dL AST 15 (0-34) U/L ALT 9 L (10-49) U/L Alkaline Phosphatase 58 (46-116) U/L Albumin 4.4 (3.5-5.0) gm/dL Quality Measures Quality Measures none Medications Home Medications and Allergies Home Medications ?Medication ?Instructions ?Recorded ?Confirmed ?Type ibuprofen 800 mg tablet 800 mg PO Q6HR PRN PAIN #0 t abs 07/26/14 01/02/25 History lorazepam 0.5 mg tablet 0.5 mg PO BID PRN Anxiety #0 tabs 07/26/14 01/02/25 History ergocalciferol (vitamin D2) 1,250 PO .once a week 12/06 12/29 History mcg (50,000 unit) capsule fluconazole 150 mg tablet mg 01/02/25 History nitrofurantoin 01/02/25 History monohydrate/macrocrystals 100 mg capsule pantoprazole 40 mg tablet,delayed mg PO .once a day History release sulfamethoxazole 800 tab 01/02/25 History mg-trimethoprim 160 mg tablet Allergies Allergy/AdvReac Type Severity Reaction Status Date / Time codeine Allergy Severe VOMITING Verified 06/17/17 06:08 AND HIVES erythromycin base Allergy Severe VOMITING Verified 06/17/17 06:08 AND HIVES adhesive tape Allergy Verified 06/19/17 09:37 promethazine AdvReac Severe PANIC Verified 06/17/17 06:08 ATTACKS hydromorphone AdvReac Intermediate SEVERE Verified 06/17/17 06:08 NAUSEA AND VOMITING morphine AdvReac Unknown SEVERE Verified 06/17/17 06:08 NAUSEA AND VOMITING Ocrevis Allergy Unknown Uncoded 06/29/22 21:04 Visit Medications Acetaminophen (Acetaminophen 325 Mg Tablet) 650 mg PO Q6H PRN PRN Reason: Fever >101.5 or pain 1-3 Stop: 02/01/25 15:03 Heparin Sodium (Porcine) (Heparin Sod Inj 5000 Unit/Ml Vial) 5,000 unit SC Q12HR ELVER Stop: 01/16/25 20:59 Ondansetron HCl (Ondansetron Inj 2 Mg/Ml Inj 2 Ml) 4 mg IVP Q6H PRN; Protocol PRN Reason: NAUSEA OR VOMITING Stop: 02/01/25 15:03 Pantoprazole Sodium (Pantoprazole 40 Mg Tablet) 40 mg PO QDAY ELVER Stop: 02/02/25 08:59 Discontinued Medications Aspirin (Aspirin 81 Mg Chew) 324 mg PO X1 ONE Stop: 01/02/25 07:46 Last Admin: 01/02/25 07:59 Dose: Not Given Famotidine (Famotidine 20 Mg Tablet) 40 mg PO X1 ONE Stop: 01/02/25 07:45 Last Admin: 01/02/25 08:00 Dose: Not Given Famotidine (Famotidine Inj 10 Mg/Ml Vial 2 Ml) 20 mg IVP X1 ONE Stop: 01/02/25 08:11 Last Admin: 01/02/25 08:31 Dose: 20 mg Methylprednisolone Sodium Succinate 1,000 mg/ Sodium Chloride 266 mls @ 266 mls/hr IV X1 ONE Stop: 01/02/25 14:59 Last Admin: 01/02/25 15:01 Dose: Not Given Lorazepam (Lorazepam 0.5 Mg Tablet) 0.5 mg PO X1 ONE Stop: 01/02/25 07:42 Last Admin: 01/02/25 08:00 Dose: Not Given Midazolam HCl (Midazolam Inj 1 Mg/Ml Vial 2 Ml) 1 mg IVP X1 ONE Stop: 01/02/25 08:11 Last Admin: 01/02/25 08:31 Dose: 1 mg Midazolam HCl (Midazolam Inj 1 Mg/Ml Vial 2 Ml) 1 mg IVP X1 ONE Stop: 01/02/25 12:05 Last Admin: 01/02/25 12:11 Dose: 1 mg Ondansetron HCl (Ondansetron Inj 2 Mg/Ml Inj 2 Ml) 4 mg IVP X1 ONE; Protocol Stop: 01/02/25 08:11 Last Admin: 01/02/25 08:30 Dose: 4 mg Pantoprazole Sodium (Pantoprazole Inj 40 Mg Vial) 40 mg IVP X1 ONE Stop: 01/02/25 07:45 Last Admin: 01/02/25 07:56 Dose: 40 mg Assessment & Plan Plan Patient is a 49-year-old female with past medical history of multiple sclerosis since 2002, migraines, recurrent UTIs who presents on 01/02 for chief complaint of shortness of breath that started around 4 AM this morning, accompanied with locking of her extremities. Admitted for MS flare, will be treated with IV steroids. #Multiple sclerosis flare #Hx MS since 2002 Presented with shortness of breath and rigid extremities. Per patient, symptoms are similar to prior flareup episodes of MS, last episode 2022. Has been diagnosed with MS since 2002, previous MRI workup completed and confirms diagnosis. Follows Dr. Wilks at [facility], currently not on any treatment. Repeat MRI confirms demyelinating disease, no acute changes concerning for stroke. Neck MRI negative for stenosis. Plan: ? IV Solu-Medrol 1 g daily over 4 hours per neurology recommendations ? Neurology Dr. Shaffer consulted, appreciate recommendations ? Physical therapy consulted ? Lipid panel pending #UTI likely secondary to gram-negative bacteria #?Nephrolithiasis Endorses urinary frequency and foul smelling urine for the past 3 weeks. Completed 2 full courses of Macrobid and half a course of Bactrim without improvement. By PCP, was told there is concern for renal stone. WBC WNL. UA on 12/21 shows calcium oxalate crystals with elevated WBC and 3+ bacteria, previously grew E. coli, pansensitive. Note patient is urinary incontinent, placing her at increased risk for UTIs. Also had no sensation below her hips. Plan: ? Pending UA and urine culture ? CT abdomen pelvis without contrast ordered ? Hold antibiotics at this time # Heart palpitations Endorses intermittent palpitations for the past couple weeks. Had seen Dr. Lowry previously, was to be placed on Holter monitor and obtain echo outpatient on next upcoming appointment. Continues to endorse palpitations and chest pressure today, otherwise no chest pain. Possibly secondary to MS versus anxiety. Troponin negative. EKG showed sinus tachycardia with no ST or T wave abnormalities. Plan: ?Ordered echo ?Telemetry # History of anxiety # History of migraines # History of GERD Chronic medical issues. Takes Ativan 0.5 mg as needed for anxiety and ibuprofen for migraines at home. ?Ativan 0.5 mg nightly ?Tylenol as needed ?Protonix daily Health Maintenance Disposition: Telemetry DVT prophylaxis: Heparin GI prophylaxis: Protonix Diet: Regular CODE STATUS: Limited, refused chest compressions Patient plan of care was discussed with the resident Dr Rachel and the attending physician, Dr. Elise. Elena Perez, PGY-1 Attending Provider Attestation/Addendum I have discussed and was present for the essential components of the history, physical examination, diagnosis, and treatment plan with the resident. I agree with the patient's care as documented by the resident and amended herein by me. Warner Elise DO. Although this document has been carefully reviewed, there may still be some phonetic and other typographical errors. These errors are purely grammatical due to imperfections in the software program and should not be construed in any way to compromise the substance of the patient's medical care during this visit.
--- NOTE | 2025-01-02 16:08 | ECHO_ITS ---
Transthoracic Echo Report Ht (in): 69 Wt (lb): 194 Exam Location: Echo Lab Status: Inpatient Watch Train Assembler: Aliyah Felder Indications: Procedure Performed: BP: 108 / 79 HR: MEASUREMENTS (Male / Female) Normal Values 2D ECHO LV Diastolic Diameter PLAX 4.6 cm 4.2 - 5.9 / 3.9 - 5.3 cm LV Systolic Diameter PLAX 3.1 cm IVS Diastolic Thickness 1.0 cm 0.6 - 1.0 / 0.6 - 0.9 cm LVPW Diastolic Thickness 0.9 cm 0.6 - 1.0 / 0.6 - 0.9 cm LV Relative Wall Thickness 0.4 LVOT Diameter 1.9 cm Ascending Aorta Diameter 3.0 cm M-MODE AV Cusp Separation MM 0.8 cm DOPPLER AV Peak Velocity 143.0 cm/s AV Peak Gradient 8.2 mmHg AV Mean Gradient 4.0 mmHg AV Velocity Time Integral 31.8 cm LVOT Peak Velocity 133.0 cm/s LVOT Peak Gradient 7.1 mmHg LVOT Velocity Time Integral 31.4 cm AV Area Cont Eq vti 2.8 cm? AV Area Cont Eq pk 2.6 cm? MV Area PHT 3.0 cm? Mitral E Point Velocity 67.5 cm/s Mitral A Point Velocity 66.5 cm/s Mitral E to A Ratio 1.0 LV E' Lateral Velocity 8.4 cm/s Mitral E to LV E' Lateral Ratio 8.1 LV E' Septal Velocity 7.3 cm/s Mitral E to LV E' Septal Ratio 9.3 TR Peak Velocity 183.0 cm/s TR Peak Gradient 13.4 mmHg PV Peak Velocity 117.0 cm/s PV Peak Gradient 5.5 mmHg FINDINGS Left Ventricle Normal left ventricular size, wall thickness, hyperdynamic systolic function. Normal left ventricular diastolic filling pattern for age. The ejection fraction is visually estimated at 65-70 %. Right Ventricle The right ventricle is normal in size and systolic function. Left Atrium The left atrium is normal by two-dimensional, color flow and Doppler imaging with no structural abnormalities, no thrombus formation present. Right Atrium The right atrium is normal by two-dimensional imaging, color flow and Doppler imaging with no structural abnormalities, no thrombus formation present. Atrial Septum The interatrial septum appears normal with no evidence of a shunt. Aorta The aorta is normal by two-dimensional, color flow and Doppler interrogation. Mitral Valve The mitral valve is mildly prolapse. No mitral regurgitation. Aortic Valve The aortic valve is trileaflet and normal by two-dimensional, color flow and Doppler interrogation. There is no significant aortic valve regurgitation. Tricuspid Valve The tricuspid valve is normal by two-dimensional, color flow and Doppler interrogation.there is trace tricuspid valve regurgitation. Pulmonic Valve The pulmonic valve is not well visualized. There is no significant pulmonic valve regurgitation. Vessels The pulmonary artery appears normal. The inferior vena cava pulmonary and hepatic veins appear normal. Pericardium Trace pericardial effusion without cardiac tamponade CONCLUSIONS Indication: Normal left ventricular size. Hyperdynamic systolic function. Estimated Ef 65-70% Normal right ventricular size and function. Trace tricuspid regurgitation noted. Geovanna Henning (Electronically Signed) Final Date: 03 January 2025 18:44
--- NOTE | 2025-01-02 16:32 | XR_ITS ---
Examination: CT abdomen and pelvis without contrast. Coronal 3-D reconstructions. Sagittal 2-D reconstructions. Date and time of exam:January 02, 2025, 1735 hrs. Indications: Flank pain today CTDI: vol (mGy): 11.9 DLP: (mGycm): 683 Technique: Axial images of the abdomen have been obtained, 3 mm slice thickness Intravenous contrast material has not been administered. Low dose protocols were performed. One or more of the following dose reduction techniques were used; automated exposure control, adjustment of the mA and/or KV according to patient size, use of iterative reconstruction technique. Findings: No visualized liver or splenic lesions Gallbladder not visualized No pancreatic mass Mild renal scar formation No renal or ureteral calculi, no hydronephrosis Aorta normal size No pericecal inflammatory change No bowel obstruction No diverticulitis Absent uterus No bladder mass or bladder calculi Moderate osteopenia Impression: Mild renal parenchymal scar formation No renal or ureteral calculi, no hydronephrosis No CT findings of appendicitis bowel obstruction or diverticulitis
[2025-01-02 16:47] LABS: Cardiac Risk Estimate 4.5 RATIO (3.7-5.6); Cholesterol 220 mg/dL (132-200); HDL Cholesterol 49 mg/dL (40-60); LDL Cholesterol,Calculated 137 mg/dL (0-130); Triglycerides 170 mg/dL (30-150)
[2025-01-02 18:07] LABS: Collection Type, Urine Clean Catch
[2025-01-02] MEDS: ACETAMINOPHEN 325 MG TABLET 650 MG PO (18:08)
[2025-01-02] MEDS: MethylPREDNISolone. 1,000 MG in SODIUM CHLORIDE 0.9% 250 ML 250 ML 66.5 MG IV (18:14)
[2025-01-02 18:28] LABS: Bacteria,Urine 2+; Bilirubin,Urine Negative (Negative); Blood,Urine Negative (Negative); Clarity,Urine Clear (Clear/Hazy); Color,Urine Yellow (Lt Yel-Yel); Glucose, Urine Negative (Negative); Hyaline Casts,Urine < 1 /hpf (0-1); Ketones,Urine 3+ (Negative); Leukocyte Esterase,Urine Negative (Negative); Nitrite,Urine Negative (Negative); PH,Urine 6.0 (5.0-7.0); Protein,Urine Negative (Neg - Trace); RBC,Urine 3 /hpf (0-3); Specific Gravity,Urine 1.038 (1.001-1.035); Squamous Epithelial Cell,Urine 6 /hpf (0-5); Urobilinogen,Urine Negative mg/dL (0.0-1.0); WBC,Urine 1 /hpf (0-5)
[2025-01-02 19:02] LABS: Amphetamine/Methamp Scrn,U Negative (Negative); Barbiturate Screen,Urine Negative (Negative); Benzodiazepines Screen,Urine Positive (Negative); Benzoylecgonine Screen, Ur Negative (Negative); Fentanyl Screen,Urine Negative (Negative); Opiate Screen,Urine Negative (Negative); THC Screen,Urine Negative (Negative)
[2025-01-02] MEDS: HEPARIN SOD INJ 5000 UNIT/ML VIAL SC (20:52)
--- NOTE | 2025-01-02 22:49 | ESCONSULT_ITS ---
History of Present Illness Data of Consult Requesting Physician: Ruddy Elise DO Primary Care Provider: Zach Pacheco Consult Narrative History of present illness: Patient is a 49-year-old female with history of multiple sclerosis since 2002, migraines, recurrent UTIs presented to the ER with chief complaint of severe chest pain associated with shortness of breath that started around 4 AM this morning, accompanied with locking of her extremities. Reports similar episodes during previous MS flares, last episode 2022. Follows Dr. Wilks at [facility], last seen a month ago. Tried Ocrevus infusion couple of months ago but experienced adverse reaction manifesting as shortness of breath and was discontinued. Also reports history of CVA but was ruled out at last admission in 06/2023 with residual left-sided weakness. She does complain of intermittent freezing of her extremities. Tries to be independent and walks with walker at home. She also complains of urinary urgency with foul odor in urine for the past 3 weeks. Was treated with 2 full courses of Macrobid and another 7 day course of Bactrim (was only able to tolerate 4 days). Patient has urinary incontinence and decreased sensation below her hips secondary to her MS, wears diapers at home. Workup in the ER: -Vitals: BP 153/80, HR 133, afebrile, saturating well on room air -Labs: CBC unremarkable. CMP unremarkable. Troponins are negative. TSH and T4 within normal limits. EKG shows sinus tachycardia. No ST or T wave abnormalities noted. -Imaging included brain MRI shows repeat pattern of demyelinating disease. Neck MRA negative for stenosis. CXR concerning for possible atelectasis versus left base pneumonia. Patient is admitted for management of MS exacerbation. Neurology was consulted to evaluate for cc:: cc: Ruddy Elise DO Review of Systems Review of Systems Systems Reviewed: All systems reviewed, normal except as documented Meds Home Medications and Allergies Home Medications ?Medication ?Instructions ?Recorded ?Confirmed ?Type ibuprofen 800 mg tablet 800 mg PO Q6HR PRN PAIN #0 t abs 07/26/14 01/02/25 History lorazepam 0.5 mg tablet 0.5 mg PO BID PRN Anxiety #0 tabs 07/26/14 01/02/25 History ergocalciferol (vitamin D2) 1,250 PO .once a week 12/06 12/29 History mcg (50,000 unit) capsule fluconazole 150 mg tablet mg 01/02/25 History nitrofurantoin 01/02/25 History monohydrate/macrocrystals 100 mg capsule pantoprazole 40 mg tablet,delayed mg PO .once a day History release sulfamethoxazole 800 tab 01/02/25 History mg-trimethoprim 160 mg tablet Allergies Allergy/AdvReac Type Severity Reaction Status Date / Time codeine Allergy Severe VOMITING Verified 06/17/17 06:08 AND HIVES erythromycin base Allergy Severe VOMITING Verified 06/17/17 06:08 AND HIVES adhesive tape Allergy Verified 06/19/17 09:37 promethazine AdvReac Severe PANIC Verified 06/17/17 06:08 ATTACKS hydromorphone AdvReac Intermediate SEVERE Verified 06/17/17 06:08 NAUSEA AND VOMITING morphine AdvReac Unknown SEVERE Verified 06/17/17 06:08 NAUSEA AND VOMITING Ocrevis Allergy Unknown Uncoded 06/29/22 21:04 Exam - Neurology Vital Signs Temp Pulse Resp BP Pulse Ox O2 Del Method 97.1 F 80 18 118/56 L 92 L Room Air 01/02/25 20:00 01/02/25 20:00 01/02/25 20:00 01/02/25 20:00 01/02/25 20:00 01/02/25 20:00 Narrative Exam GENERAL APPEARANCE: Well-developed, well-nourished white female in no acute distress. HEENT: Normocephalic, atraumatic, extraocular movements intact. Pupils: 4 mm equally reactive. NECK: Supple, no JVD or bruits. CARDIOVASULAR: Heart: S1, S2 heard regular without S3-S4 or murmur no rubs or gallops. LUNGS/CHEST: No Rales and rhonchi heard. clear to auscultation. Normal inspection. ABDOMEN: Soft, nontender, with normal bowel sounds. No pulsatile masses. No rebound, rigidity, or guarding. Normal inspection and palpation. EXTREMITIES: Normal inspection and palpation. No edema, clubbing or cyanosis noted SKIN: Warm and dry without rashes. Normal inspection. MUSCULOSKELETAL: No cervical, thoracic, lumbar or midline bony tenderness. Normal inspection. NEURO: Alert awake oriented ?3, speech and language: Normal without any significant aphasia or dysarthria. Cranial nerves II through XII intact. Moves all extremities except the left upper and lower extremities with Significant spasticity noticed in both lower extremities with foot drop bilaterally. Psychiatric: Mood and affect: normal Results Labs 01/02/25 07:51 01/02/25 07:51 Labs: Short CBC 01/02/25 Range/Units 07:51 WBC 5.8 (3.6-11.0) Thou/mm3 Hgb 15.1 (12.0-16.0) g/dL Hct 44.9 (36.0-46.0) % Plt Count 365 (140-440) Thou/mm3 BMP 01/02/25 07:51 Sodium 141 Potassium 3.6 Chloride 107 Carbon Dioxide 21.3 BUN 7 L Creatinine 0.8 Glucose 109 H Calcium 9.8 Cardiac Enzymes 01/02/25 01/02/25 Range/Units 07:51 09:52 Troponin I < 0.002 < 0.020 (0.0-0.045) ng/mL Liver Function 01/02/25 Range/Units 07:51 Total Bilirubin 0.8 (0.3-1.2) mg/dL AST 15 (0-34) U/L ALT 9 L (10-49) U/L Alkaline Phosphatase 58 (46-116) U/L Albumin 4.4 (3.5-5.0) gm/dL Urine 01/02/25 Range/Units 17:58 Urine Color Yellow (Lt Yel-Yel) Urine Clarity Clear (Clear/Hazy) Urine pH 6.0 (5.0-7.0) Ur Specific [place] 1.038 H (1.001-1.035) Urine Protein Negative (Neg - Trace) Urine Glucose (UA) Negative (Negative) Assessment & Plan Assessment and plan (1) Exacerbation of multiple sclerosis: Status: Acute Assessment and plan: Noted on the MRI brain showing stable MS lesions nothing new or active. 3 doses of IV Solu-Medrol 1 g each daily followed by Medrol Dosepak. Patient is advised to follow-up with Dr. Wilks at [facility] for further management of medical disease modification treatment. Noted that she has tried and failed several therapies received in [place], Copaxone, Ocrevus, [place] Tecfidera and Tysabri. Patient would like to be transferred to [facility] inpatient rehab as needed after completing steroids x 3 days.
[2025-01-03] VITALS (11 sets, daily range): BP systolic 96–125; BP diastolic 52–69; PULSE 65–96; RESP 12–94; TEMP 35.9–36.2; O2SAT 92–94; BMI 12.0
[2025-01-03 05:30] LABS: Basophils # (Auto) 0.0 Thou/mm3 (0.0-0.2); Basophils % (Auto) 0 % (0-2.5); Eosinophils # (Auto) 0.0 Thou/mm3 (0.0-0.5); Eosinophils % (Auto) 0 % (0-10); Hematocrit 39.3 % (36.0-46.0); Hemoglobin 13.3 g/dL (12.0-16.0); Immature Granulocytes Auto 0.02 Thou/mm3 (0.00-0.00); Lymphocytes # (Auto) 0.6 Thou/mm3 (1.0-4.8); Lymphocytes % (Auto) 18 % (10-50); Mean Corpuscular HGB Conc 33.8 g/dl (31.0-37.0); Mean Corpuscular Hemoglobin 32.7 pg (25.0-35.0); Mean Corpuscular Volume 97 fL (80-100); Monocytes # (Auto) 0.0 Thou/mm3 (0.0-0.8); Monocytes % (Auto) 0 % (0-12); Neutrophils # (Auto) 2.9 Thou/mm3 (1.8-7.7); Neutrophils % (Auto) 82 % (37-80); Nucleated Red Blood Cell # 0.00 Thou/mm3 (0.00-0.00); Nucleated Red Blood Cell % 0 /100 WBC (0); Platelet Count 262 Thou/mm3 (140-440); RDW Standard Deviation 48.4 fL (36.4-46.3); Red Blood Count 4.07 Miln/mm3 (4.00-5.20); White Blood Count 3.6 Thou/mm3 (3.6-11.0)
[2025-01-03 06:28] LABS: Anion Gap 10 (7-16); BUN/Creatinine Ratio 13 Ratio (12-20); Blood Urea Nitrogen 9 mg/dL (9-23); Calcium 9.6 mg/dL (8.3-10.6); Carbon Dioxide 24.2 mMol/L (20.0-31.0); Chloride 106 mMol/L (98-107); Creatinine (Component) 0.7 mg/dL (0.6-1.3); Estimated Creatinine Clearance 105.6 mL/min (>60); Glucose 187 mg/dL (74-106); Magnesium 2.1 mg/dL (1.6-2.6); Osmolality,Calculated 283 (275-295); Phosphorous 2.7 mg/dL (2.4-5.1); Potassium 3.9 mMol/L (3.4-5.1); Sodium 140 mMol/L (136-145); Thyroid Stimulating Hormone 0.48 uIU/mL (0.55-4.78); eGFR > 60 See Note
[2025-01-03] MEDS: HEPARIN SOD INJ 5000 UNIT/ML VIAL SC ×2 (08:19→20:35)
[2025-01-03] MEDS: PANTOPRAZOLE 40 MG TABLET PO (08:19)
[2025-01-03] MEDS: IBUPROFEN TAB 400 MG TABLET 800 MG PO (09:09)
--- NOTE | 2025-01-03 11:22 | PD.RESPRO ---
Documentation for date of: 01/03/25 Subjective Subjective Interval history: No acute events overnight. Endorses headache and persistent rigidity of extremities, given ibuprofen per patient request. Also continues to endorse dysuria, will repeat urine cultures and start on IV ceftriaxone 1 g daily. Await final results and sensitivities. Plan to work with PT today. Will continue IV steroids per neurology recommendations. Pending echo. Anticipate discharge to rehab facility after day 3 of steroids. Exam Vital Signs Temp Pulse Resp BP Pulse Ox O2 Del Method 97.1 F 79 14 102/66 93 L Room Air 01/03/25 08:00 01/03/25 10:49 01/03/25 08:00 01/03/25 08:00 01/03/25 08:00 01/03/25 08:00 Narrative Exam Physical Exam General: Awake and in no acute distress. Conversational and non-toxic appearing. HEENT: Normocephalic, atraumatic, mucous membranes moist. Heart: Regular rate and rhythm, normal S1 and S2, no murmurs. Lungs: Clear to auscultation with no wheezing or crackles. Abdomen: Soft, nondistended, nontender, positive bowel sounds. No guarding or rebound tenderness. Neurologic: Alert and oriented x3. Unable to move lower extremities, rigid. Left upper extremity contracted, chronic. 5/5 strength in right upper extremity. Sensation intact throughout. Extremities: Swollen ankles bilaterally but no pitting edema appreciated. Skin: No rash or ecchymoses. Objective Labs 01/04/25 04:20 01/04/25 04:20 Labs: Laboratory Results - last 24 hr 01/02/25 01/02/25 01/03/25 16:22 17:58 04:35 WBC 3.6 RBC 4.07 Hgb 13.3 Hct 39.3 MCV 97 MCH 32.7 MCHC 33.8 RDW Std Deviation 48.4 H Plt Count 262 D Neut % (Auto) 82 H Lymph % (Auto) 18 [place] % (Auto) 0 Eos % (Auto) 0 Baso % (Auto) 0 Neut # (Auto) 2.9 Lymph # (Auto) 0.6 L [place] # (Auto) 0.0 Eos # (Auto) 0.0 Baso # (Auto) 0.0 Immature Gran # (Auto) 0.02 H Absolute Nucleated RBC 0.00 Immature Gran % 1 H Nucleated RBC % 0 Sodium 140 Potassium 3.9 Chloride 106 Carbon Dioxide 24.2 Anion Gap 10 BUN 9 Creatinine 0.7 Estim Creat Clear Calc 105.6 eGFR > 60 BUN/Creatinine Ratio 13 Glucose 187 H D Calculated Osmolality 283 Calcium 9.6 Phosphorus 2.7 Magnesium 2.1 Triglycerides 170 H Cholesterol 220 H LDL Cholesterol, Calc 137 H HDL Cholesterol 49 Cholesterol/HDL Ratio 4.5 TSH 0.48 L D Ur Collection Type Clean Catch Urine Color Yellow Urine Clarity Clear Urine pH 6.0 Ur Specific [place] 1.038 H Urine Protein Negative Urine Glucose (UA) Negative Urine Ketones 3+ A Urine Blood Negative Urine Nitrite Negative Urine Bilirubin Negative Urine Urobilinogen (Auto) Negative Ur Leukocyte Esterase Negative Urine RBC 3 Urine WBC 1 Ur Squamous Epith Cells 6 H Urine Bacteria 2+ A Hyaline Casts < 1 Urine Opiates Screen Negative Urine Fentanyl Screen Negative Ur Barbiturates Screen Negative U Amphetamin/Meth Scrn Negative U Benzodiazepines Scrn Positive A U Cocaine Metab Screen Negative U Marijuana (THC) Screen Negative Quality Measures Quality Measures none Assessment & Plan Assessment Current Active Medications: Generic Name Dose Route Start Last Admin Trade Name Freq PRN Reason Stop Dose Admin Acetaminophen 650 mg 01/02/25 15:04 01/02/25 18:08 Acetaminophen 325 Mg Tablet PO 02/01/25 15:03 650 mg Q6H PRN Administration Fever >101.5 or pain 1-3 Heparin Sodium (Porcine) 5,000 unit 01/02/25 21:00 01/03/25 08:19 Heparin Sod Inj 5000 Unit/Ml Vial SC 01/16/25 20:59 5,000 unit Q12HR ELVER Administration Methylprednisolone Sodium 266 mls @ 66.5 mls/hr 01/02/25 17:47 01/02/25 22:14 Succinate 1,000 mg/ Sodium IV 01/05/25 16:14 Infused Chloride Q24H ELVER Infusion Lorazepam 0.5 mg 01/02/25 16:07 01/02/25 22:50 Lorazepam 0.5 Mg Tablet PO 01/07/25 16:06 0.5 mg Q8HR PRN Administration AGITATION OR ANXIETY Ondansetron HCl 4 mg 01/02/25 15:04 Ondansetron Inj 2 Mg/Ml Inj 2 Ml IVP 02/01/25 15:03 Q6H PRN NAUSEA OR VOMITING Protocol Pantoprazole Sodium 40 mg 01/03/25 09:00 01/03/25 08:19 Pantoprazole 40 Mg Tablet PO 02/02/25 08:59 40 mg QDAY ELVER Administration Plan Patient is a 49-year-old female with past medical history of multiple sclerosis since 2002, migraines, recurrent UTIs who presents on 01/02 for chief complaint of shortness of breath that started around 4 AM this morning, accompanied with locking of her extremities. Admitted for MS flare, will be treated with IV steroids. #Multiple sclerosis flare #Hx MS since 2002 Presented with shortness of breath and rigid extremities. Per patient, symptoms are similar to prior flareup episodes of MS, last episode 2022. Has been diagnosed with MS since 2002, previous MRI workup completed and confirms diagnosis. Follows Dr. Wilks at [facility], currently not on any treatment. Repeat MRI confirms demyelinating disease, no acute changes concerning for stroke. Neck MRI negative for stenosis. Plan: ? IV Solu-Medrol 1 g daily over 4 hours for 3 day course per neurology recommendations (01/02- - Will discharge with Medrol dosepak ? Neurology Dr. Shaffer consulted, appreciate recommendations ? Physical therapy consulted - Anticipate discharge to [facility] inpatient rehab center #UTI likely secondary to gram-negative bacteria Endorses urinary frequency and foul smelling urine for the past 3 weeks. Completed 2 full courses of Macrobid and half a course of Bactrim without improvement. By PCP, was told there is concern for renal stone. WBC WNL. UA on 12/21 shows calcium oxalate crystals with elevated WBC and 3+ bacteria, previously grew E. coli, pansensitive. Note patient is urinary incontinent, placing her at increased risk for UTIs. Also had no sensation below her hips. CT A/P negative for nephrolithiasis. Plan: ? Follow up repeat urine cultures - IV CFX 1 g (01/03- # Heart palpitations Endorses intermittent palpitations for the past couple weeks. Had seen Dr. Lowry previously, was to be placed on Holter monitor and obtain echo outpatient on next upcoming appointment. Continues to endorse palpitations and chest pressure today, otherwise no chest pain. Possibly secondary to MS versus anxiety. Troponin negative. EKG showed sinus tachycardia with no ST or T wave abnormalities. Plan: ?Pending echo ?Telemetry # History of anxiety # History of migraines # History of GERD Chronic medical issues. Takes Ativan 0.5 mg as needed for anxiety and ibuprofen for migraines at home. ?Ativan 0.5 mg nightly ?Tylenol as needed ?Protonix daily Health Maintenance Disposition: Telemetry DVT prophylaxis: Heparin GI prophylaxis: Protonix Diet: Regular CODE STATUS: Limited, refused chest compressions Patient plan of care was discussed with the attending physician, Dr. Elise. Elena Perez, PGY-1 Attending Provider Attestation/Addendum I have discussed and was present for the essential components of the history, physical examination, diagnosis, and treatment plan with the resident. I agree with the patient's care as documented by the resident and amended herein by me. Warner Elise, DO. Although this document has been carefully reviewed, there may still be some phonetic and other typographical errors. These errors are purely grammatical due to imperfections in the software program and should not be construed in any way to compromise the substance of the patient's medical care during this visit.
--- NOTE | 2025-01-03 12:02 | PC.SS ---
SS met with patient regarding her d/c plan. Pt is alert/oriented. Pt was admitted for Multiple Sclerosis Flare. Pt confirmed demographic and contact information is correct on facesheet. Pt resides with son who is her [facility] caregiver. Pt ambulates using 4 wheel with seat, rollator walker. Pt requires assistance with all ADLs. Patient?s pharmacy of choice is [facility]. Pt named her son, Morris Cook or mom, Haven Banegas medical decision maker if she is unable. SS provided verbal choices for d/c to home or SNF. Patient's choice is to d/c to [facility]. Patient?s choice is to return home upon d/c. Pt does not have an advance directive, SS offered, and pt was receptive. Pt states she is not diabetic and is not on dialysis. SS left voicemail for [facility]. D/C plan: Acute Rehab Next of Kin: Morris Palomares, son, phone# [phone] or Haven Banegas, mom, phone# [phone] PCP: Dr. Zach Delgado Address: Correct on facesheet
--- NOTE | 2025-01-03 15:40 | PC.SS ---
SS has sent inquiry to Acute Rehab Facilities, [facility] and [facility] in [place] using [facility]. Pt prefers [facility]. SS has attempted to contact [facility] but was unsuccessful (SS has left 2 voicemails with SS phone#). Pt is aware.
[2025-01-03] MEDS: ACETAMINOPHEN 325 MG TABLET 650 MG PO (15:46)
[2025-01-03] MEDS: cefTRIAXone/D5w 1gm IV premix 1 GM/50 ML BAG IV (15:46)
[2025-01-03] MEDS: MethylPREDNISolone. 1,000 MG in SODIUM CHLORIDE 0.9% 250 ML 250 ML 66.5 MG IV (17:48)
--- NOTE | 2025-01-03 23:48 | PD.NEUROPROG ---
Documentation for date of: 01/03/25 Subjective Subjective Interval history: Patient is a 49-year-old female with history of multiple sclerosis since 2002, migraines, recurrent UTIs presented to the ER with chief complaint of severe chest pain associated with shortness of breath that started around 4 AM this morning, accompanied with locking of her extremities. Reports similar episodes during previous MS flares, last episode 2022. Follows Dr. Wilks at [facility], last seen a month ago. Tried Ocrevus infusion couple of months ago but experienced adverse reaction manifesting as shortness of breath and was discontinued. Also reports history of CVA but was ruled out at last admission in 06/2023 with residual left-sided weakness. She does complain of intermittent freezing of her extremities. Tries to be independent and walks with walker at home. She also complains of urinary urgency with foul odor in urine for the past 3 weeks. Was treated with 2 full courses of Macrobid and another 7 day course of Bactrim (was only able to tolerate 4 days). Patient has urinary incontinence and decreased sensation below her hips secondary to her MS, wears diapers at home. Workup in the ER: -Vitals: BP 153/80, HR 133, afebrile, saturating well on room air -Labs: CBC unremarkable. CMP unremarkable. Troponins are negative. TSH and T4 within normal limits. EKG shows sinus tachycardia. No ST or T wave abnormalities noted. -Imaging included brain MRI shows repeat pattern of demyelinating disease. Neck MRA negative for stenosis. CXR concerning for possible atelectasis versus left base pneumonia. Patient is admitted for management of MS exacerbation. Neurology was consulted to evaluate further. Patient was seen in [facility] today. Continues to complain of left hemiparesis with spasticity. She was noted to be in tears secondary to feeling uncomfortable from restless leg/painful muscle spasms in the left leg. She stated that she usually takes Ativan to help with the symptom at home. Exam - Neurology Vital Signs Temp Pulse Resp BP Pulse Ox O2 Del Method 97.1 F 74 16 114/58 L 94 L Room Air 01/03/25 19:54 01/03/25 19:54 01/03/25 19:54 01/03/25 19:54 01/03/25 19:54 01/03/25 19:54 Narrative Exam GENERAL APPEARANCE: Well-developed, well-nourished white female in no acute distress. HEENT: Normocephalic, atraumatic, extraocular movements intact. Pupils: 4 mm equally reactive. NECK: Supple, no JVD or bruits. CARDIOVASULAR: Heart: S1, S2 heard regular without S3-S4 or murmur no rubs or gallops. LUNGS/CHEST: No Rales and rhonchi heard. clear to auscultation. Normal inspection. ABDOMEN: Soft, nontender, with normal bowel sounds. No pulsatile masses. No rebound, rigidity, or guarding. Normal inspection and palpation. EXTREMITIES: Normal inspection and palpation. No edema, clubbing or cyanosis noted SKIN: Warm and dry without rashes. Normal inspection. MUSCULOSKELETAL: No cervical, thoracic, lumbar or midline bony tenderness. Normal inspection. NEURO: Alert awake oriented ?3, speech and language: Normal without any significant aphasia or dysarthria. Cranial nerves II through XII intact. Moves all extremities except the left upper and lower extremities with Significant spasticity noticed in both lower extremities with foot drop bilaterally. Psychiatric: Mood and affect: normal Objective Labs 01/03/25 04:35 01/03/25 04:35 Labs: Laboratory Results - last 24 hr 01/03/25 04:35 WBC 3.6 RBC 4.07 Hgb 13.3 Hct 39.3 MCV 97 MCH 32.7 MCHC 33.8 RDW Std Deviation 48.4 H Plt Count 262 D Neut % (Auto) 82 H Lymph % (Auto) 18 [place] % (Auto) 0 Eos % (Auto) 0 Baso % (Auto) 0 Neut # (Auto) 2.9 Lymph # (Auto) 0.6 L [place] # (Auto) 0.0 Eos # (Auto) 0.0 Baso # (Auto) 0.0 Immature Gran # (Auto) 0.02 H Absolute Nucleated RBC 0.00 Immature Gran % 1 H Nucleated RBC % 0 Sodium 140 Potassium 3.9 Chloride 106 Carbon Dioxide 24.2 Anion Gap 10 BUN 9 Creatinine 0.7 Estim Creat Clear Calc 105.6 eGFR > 60 BUN/Creatinine Ratio 13 Glucose 187 H D Calculated Osmolality 283 Calcium 9.6 Phosphorus 2.7 Magnesium 2.1 TSH 0.48 L D Assessment & Plan Assessment and plan (1) Exacerbation of multiple sclerosis: Status: Acute Assessment and plan: Noted on the MRI brain showing stable MS lesions nothing new or active. Completed 2 doses of IV Solu-Medrol, 1 more dose pending. She will take Medrol Dosepak after that. Patient is advised to follow-up with Dr. Wilks at [facility] for further management with disease modification treatment. Noted that she has tried and failed several therapies received in [place], Copaxone, Ocrevus, [place] Tecfidera and Tysabri. Patient would like to be transferred to [facility] inpatient rehab as needed after completing steroids x 3 days.
[2025-01-04] VITALS (12 sets, daily range): BP systolic 109–129; BP diastolic 61–70; PULSE 63–91; RESP 16–98; TEMP 36.1–36.5; O2SAT 93–95; BMI 11.0
[2025-01-04] MEDS: IBUPROFEN TAB 600 MG TABLET PO (00:44)
[2025-01-04 05:11] LABS: Basophils # (Auto) 0.0 Thou/mm3 (0.0-0.2); Basophils % (Auto) 0 % (0-2.5); Eosinophils # (Auto) 0.0 Thou/mm3 (0.0-0.5); Eosinophils % (Auto) 0 % (0-10); Hematocrit 39.4 % (36.0-46.0); Hemoglobin 13.1 g/dL (12.0-16.0); Immature Granulocytes Auto 0.02 Thou/mm3 (0.00-0.00); Lymphocytes # (Auto) 0.8 Thou/mm3 (1.0-4.8); Lymphocytes % (Auto) 10 % (10-50); Mean Corpuscular HGB Conc 33.2 g/dl (31.0-37.0); Mean Corpuscular Hemoglobin 32.4 pg (25.0-35.0); Mean Corpuscular Volume 98 fL (80-100); Monocytes # (Auto) 0.2 Thou/mm3 (0.0-0.8); Monocytes % (Auto) 2 % (0-12); Neutrophils # (Auto) 7.3 Thou/mm3 (1.8-7.7); Neutrophils % (Auto) 88 % (37-80); Nucleated Red Blood Cell # 0.00 Thou/mm3 (0.00-0.00); Nucleated Red Blood Cell % 0 /100 WBC (0); Platelet Count 295 Thou/mm3 (140-440); RDW Standard Deviation 48.8 fL (36.4-46.3); Red Blood Count 4.04 Miln/mm3 (4.00-5.20); White Blood Count 8.2 Thou/mm3 (3.6-11.0)
[2025-01-04 06:11] LABS: Anion Gap 12 (7-16); BUN/Creatinine Ratio 13 Ratio (12-20); Blood Urea Nitrogen 9 mg/dL (9-23); Calcium 9.5 mg/dL (8.3-10.6); Carbon Dioxide 25.4 mMol/L (20.0-31.0); Chloride 106 mMol/L (98-107); Creatinine (Component) 0.7 mg/dL (0.6-1.3); Estimated Creatinine Clearance 105.6 mL/min (>60); Glucose 155 mg/dL (74-106); Osmolality,Calculated 286 (275-295); Potassium 3.7 mMol/L (3.4-5.1); Sodium 143 mMol/L (136-145); eGFR > 60 See Note
[2025-01-04] MEDS: ACETAMINOPHEN 325 MG TABLET 650 MG PO (06:22)
[2025-01-04] MEDS: cefTRIAXone/D5w 1gm IV premix 1 GM/50 ML BAG IV (08:12)
[2025-01-04] MEDS: PANTOPRAZOLE 40 MG TABLET PO (08:13)
[2025-01-04] MEDS: HEPARIN SOD INJ 5000 UNIT/ML VIAL SC ×2 (08:13→20:13)
--- NOTE | 2025-01-04 09:34 | PC.SS ---
Follow up note: On IV steroids. SS has spoken to Elin form [facility], who explained their physician has reviewed inquiry and pt is appropriate for their facility. Elin states pt must complete IV steroids before dc to their facility. Elin is aware pt is possible d/c for tomorrow.
[2025-01-04 09:53] LABS: Free T4 (Free Thyroxine) 1.18 ng/dL (0.89-1.76)
--- NOTE | 2025-01-04 12:33 | PC.SS ---
SS has sent updated inquiry to [facility] using [facility].
--- NOTE | 2025-01-04 13:57 | ESPR_ITS ---
<Statement entered by Wenceslao Lantigua MD - 01/13/25 08:16> I reviewed above note and agree with findings and plans. I have also personally examined the patient with medicine team and went over assessment and plan with medical team including software developer intern and resident physician. <Statement entered by Ronak Tanner MD - 01/04/25 15:38> Patient seen and assessed in hospital bed denies having any new concerning symptoms; however, continues to have persistent locking of upper extremities. Patient will complete the last day of IV steroid for MS flare. Neurology is on board, appreciate recommendations. Expect discharge within the next 24 to 48 hours to acute rehab center upon approval. I have personally seen and examined the patient. I agree with the resident's assessment and plan as documented below. Ronak Tanner, PGY-2 Internal Medicine - [facility] Documentation for date of: 01/04/25 Subjective Subjective Interval history: Patient seen at bedside. No acute overnight events. Patient continues to be locking left arm and unable to move both legs. Patient's last bowel movement was 2 days ago. Patient mentions that work for her headaches and she usually takes ibuprofen 800 mg every 6-8 hours as needed, and that is the only thing that helps. Patient to finish IV Solu-Medrol day 3 of 3. Will aim to discharge with Medrol Dosepak tomorrow. Exam Vital Signs Temp Pulse Resp BP Pulse Ox O2 Del Method 97.1 F 71 16 117/70 95 Room Air 01/04/25 12:00 01/04/25 12:00 01/04/25 12:00 01/04/25 12:00 01/04/25 12:00 01/04/25 12:00 Narrative Exam General: Awake and in no acute distress. Conversational and non-toxic appearing. HEENT: Normocephalic, atraumatic, mucous membranes moist. Heart: Regular rate and rhythm, normal S1 and S2, no murmurs. Lungs: Clear to auscultation with no wheezing or crackles. Abdomen: Soft, nondistended, nontender, positive bowel sounds. No guarding or rebound tenderness. Neurologic: Alert and oriented x3. Unable to move lower extremities, rigid. Left upper extremity contracted, chronic. 5/5 strength in right upper extremity. Sensation intact throughout. Extremities: Swollen ankles bilaterally but no pitting edema appreciated. Skin: No rash or ecchymoses. Objective Labs 01/05/25 04:50 01/05/25 04:50 Labs: Laboratory Results - last 24 hr 01/04/25 04:20 WBC 8.2 D RBC 4.04 Hgb 13.1 Hct 39.4 MCV 98 MCH 32.4 MCHC 33.2 RDW Std Deviation 48.8 H Plt Count 295 D Neut % (Auto) 88 H Lymph % (Auto) 10 [place] % (Auto) 2 Eos % (Auto) 0 Baso % (Auto) 0 Neut # (Auto) 7.3 Lymph # (Auto) 0.8 L [place] # (Auto) 0.2 Eos # (Auto) 0.0 Baso # (Auto) 0.0 Immature Gran # (Auto) 0.02 H Absolute Nucleated RBC 0.00 Immature Gran % 0 Nucleated RBC % 0 Sodium 143 Potassium 3.7 Chloride 106 Carbon Dioxide 25.4 Anion Gap 12 BUN 9 Creatinine 0.7 Estim Creat Clear Calc 105.6 eGFR > 60 BUN/Creatinine Ratio 13 Glucose 155 H Calculated Osmolality 286 Calcium 9.5 Free T4 1.18 Quality Measures Quality Measures none Assessment & Plan Assessment Current Active Medications: Generic Name Dose Route Start Last Admin Trade Name Freq PRN Reason Stop Dose Admin Acetaminophen 650 mg 01/02/25 15:04 01/04/25 06:22 Acetaminophen 325 Mg Tablet PO 02/01/25 15:03 650 mg Q6H PRN Administration Fever >101.5 or pain 1-3 Atorvastatin Calcium 20 mg 01/04/25 21:00 Atorvastatin Calcium 20 Mg Tablet PO 02/03/25 20:59 HS ELVER Heparin Sodium (Porcine) 5,000 unit 01/02/25 21:00 01/04/25 08:13 Heparin Sod Inj 5000 Unit/Ml Vial SC 01/16/25 20:59 5,000 unit Q12HR ELVER Administration Methylprednisolone Sodium 266 mls @ 66.5 mls/hr 01/02/25 17:47 01/03/25 17:48 Succinate 1,000 mg/ Sodium IV 01/05/25 16:14 66.5 mls/hr Chloride Q24H ELVER Administration Ceftriaxone Sodium/Dextrose 1 gm in 50 mls @ 100 mls/hr 01/03/25 15:16 01/04/25 08:12 Rocephin/D5w 1gm Iv Premix IV 01/10/25 15:15 100 mls/hr QDAY ELVER Administration Lorazepam 0.5 mg 01/02/25 16:07 01/04/25 06:20 Lorazepam 0.5 Mg Tablet PO 01/07/25 16:06 0.5 mg Q8HR PRN Administration AGITATION OR ANXIETY Ondansetron HCl 4 mg 01/02/25 15:04 Ondansetron Inj 2 Mg/Ml Inj 2 Ml IVP 02/01/25 15:03 Q6H PRN NAUSEA OR VOMITING Protocol Pantoprazole Sodium 40 mg 01/03/25 09:00 01/04/25 08:13 Pantoprazole 40 Mg Tablet PO 02/02/25 08:59 40 mg QDAY ELVER Administration Plan Assessment: 49-year-old female with past medical history of multiple sclerosis since 2002, migraines, recurrent UTIs who presented on 01/02 for CC of SOB in AM, accompanied with locking of her extremities. Admitted for MS flare, treated with IV steroids. #Multiple sclerosis flare #Hx MS since 2002 Presented with shortness of breath and rigid extremities. Per patient, symptoms are similar to prior flareup episodes of MS, last episode 2022. Has been diagnosed with MS since 2002, previous MRI workup completed and confirms diagnosis. Follows Dr. Wilks at [facility], currently not on any treatment. Repeat MRI confirms demyelinating disease, no acute changes concerning for stroke. Neck MRI negative for stenosis. Plan: ? IV Solu-Medrol 1 g daily q24h for 3 day course per neurology recommendations (01/02- 01/04) - Will discharge with Medrol dosepak ? Neurology Dr. Shaffer consulted, appreciate recommendations ? Physical therapy consulted - Anticipate discharge to [facility] inpatient re[facility] #UTI likely secondary to gram-negative bacteria Endorses urinary frequency and foul smelling urine for the past 3 weeks. Completed 2 full courses of Macrobid and half a course of Bactrim without improvement. By PCP, was told there is concern for renal stone. WBC WNL. UA on 12/21 shows calcium oxalate crystals with elevated WBC and 3+ bacteria, previously grew E. coli, pansensitive. Note patient is urinary incontinent, placing her at increased risk for UTIs. Also had no sensation below her hips. CT A/P negative for nephrolithiasis. Plan: ? Follow up repeat urine cultures (taken 01/03) - IV CTX 1 g (01/03- #Hx of Headaches Patient mentions Tylenol does not work for her headaches and she takes Ibuprofen 800mg q6-8hrs PRN at home Plan - Ibuprofen 800mg q8hr PRN #Constipation Last BM 2 days ago Plan Colase 100mg daily #Heart palpitations Endorses intermittent palpitations for the past couple weeks. Had seen Dr. Lowry previously, was to be placed on Holter monitor and obtain echo outpatient on next upcoming appointment. Continues to endorse palpitations and chest pressure today, otherwise no chest pain. Possibly secondary to MS versus anxiety. Troponin negative. EKG showed sinus tachycardia with no ST or T wave abnormalities. Plan: ?ECHO showed hyperdynamic systolic function. Estimated EF 65-70%. ?Telemetry # History of anxiety # History of migraines # History of GERD Chronic medical issues. Takes Ativan 0.5 mg as needed for anxiety and ibuprofen for migraines at home. ?Ativan 0.5 mg nightly ?Tylenol as needed ?Protonix daily Health Maintenance Disposition: Telemetry DVT prophylaxis: Heparin GI prophylaxis: Protonix Diet: Regular CODE STATUS: Limited, refused chest compressions Case discussed with my attending Dr. Lantigua, and senior resident, Dr. Flores Mosquera MD PGY-1
[2025-01-04] MEDS: IBUPROFEN TAB 400 MG TABLET 800 MG PO ×2 (14:32→21:50)
--- NOTE | 2025-01-04 15:33 | ESPR_ITS ---
Documentation for date of: 01/04/25 Subjective Subjective Interval history: Patient examined at bedside. States that her symptoms have improved since admission. Her last MS flare was in 2022, which also co-presented with a stroke. This resulted in right upper and LE weakness. Since that time, patient has not been on any medical management for her MS. States that she follows with [facility] specialist who has tried various treatment regimens. All resulting in side effects making them intolerable. She denies any vision changes or eye pain, has no issues with incontinence or bladder control. However with onset of UTI she does endorse incontinence. Right lower extremity movement slowly improving. Still is unable to move right upper and lower extremities. Sensation is intact. Symptoms of dysuria are improving. Today's last day of IV steroid for MS flare. Transition to Medrol Dosepak. Exam Vital Signs Temp Pulse Resp BP Pulse Ox O2 Del Method 97.1 F 71 16 117/70 95 Room Air 01/04/25 12:00 01/04/25 12:00 01/04/25 12:00 01/04/25 12:00 01/04/25 12:00 01/04/25 12:00 Narrative Exam General: Middle aged female, No acute distress, cooperative HEENT: NCAT, No JVD noted. Mucosa moist. Pupils are equal and reactive to light bilaterally Cardiovascular: Normal S1 and S2. Regular rate and rhythm. Respiratory: Lungs are clear to auscultation bilaterally. No wheezing or crackles heard. Abdomen: Soft, nontender, not distended, normal bowel sounds. Skin: Warm to touch, dry, no rashes noted Musculoskeletal: No gross injuries. Able to move left U/LE, cannot move right U/LE. No pitting edema Neuro: Alert and oriented x3. Movement as noted above, sensation intact, hypertonia left arm Psych: Normal affect and mood Objective Labs 01/05/25 04:50 01/05/25 04:50 Labs: Laboratory Results - last 24 hr 01/04/25 04:20 WBC 8.2 D RBC 4.04 Hgb 13.1 Hct 39.4 MCV 98 MCH 32.4 MCHC 33.2 RDW Std Deviation 48.8 H Plt Count 295 D Neut % (Auto) 88 H Lymph % (Auto) 10 [place] % (Auto) 2 Eos % (Auto) 0 Baso % (Auto) 0 Neut # (Auto) 7.3 Lymph # (Auto) 0.8 L [place] # (Auto) 0.2 Eos # (Auto) 0.0 Baso # (Auto) 0.0 Immature Gran # (Auto) 0.02 H Absolute Nucleated RBC 0.00 Immature Gran % 0 Nucleated RBC % 0 Sodium 143 Potassium 3.7 Chloride 106 Carbon Dioxide 25.4 Anion Gap 12 BUN 9 Creatinine 0.7 Estim Creat Clear Calc 105.6 eGFR > 60 BUN/Creatinine Ratio 13 Glucose 155 H Calculated Osmolality 286 Calcium 9.5 Free T4 1.18 Quality Measures Quality Measures none Assessment & Plan Assessment Current Active Medications: Generic Name Dose Route Start Last Admin Trade Name Freq PRN Reason Stop Dose Admin Acetaminophen 650 mg 01/02/25 15:04 01/04/25 06:22 Acetaminophen 325 Mg Tablet PO 02/01/25 15:03 650 mg Q6H PRN Administration Fever >101.5 or pain 1-3 Atorvastatin Calcium 20 mg 01/04/25 21:00 Atorvastatin Calcium 20 Mg Tablet PO 02/03/25 20:59 HS ELVER Heparin Sodium (Porcine) 5,000 unit 01/02/25 21:00 01/04/25 08:13 Heparin Sod Inj 5000 Unit/Ml Vial SC 01/16/25 20:59 5,000 unit Q12HR ELVER Administration Methylprednisolone Sodium 266 mls @ 66.5 mls/hr 01/02/25 17:47 01/03/25 17:48 Succinate 1,000 mg/ Sodium IV 01/05/25 16:14 66.5 mls/hr Chloride Q24H ELVER Administration Ceftriaxone Sodium/Dextrose 1 gm in 50 mls @ 100 mls/hr 01/03/25 15:16 01/04/25 08:12 Rocephin/D5w 1gm Iv Premix IV 01/10/25 15:15 100 mls/hr QDAY ELVER Administration Lorazepam 0.5 mg 01/02/25 16:07 01/04/25 06:20 Lorazepam 0.5 Mg Tablet PO 01/07/25 16:06 0.5 mg Q8HR PRN Administration AGITATION OR ANXIETY Ondansetron HCl 4 mg 01/02/25 15:04 Ondansetron Inj 2 Mg/Ml Inj 2 Ml IVP 02/01/25 15:03 Q6H PRN NAUSEA OR VOMITING Protocol Pantoprazole Sodium 40 mg 01/03/25 09:00 10/01/25 08:13 Pantoprazole 40 Mg Tablet PO 02/02/25 08:59 40 mg QDAY ELVER Administration Plan Patient is a 49-year-old female with past medical history of multiple sclerosis since 2002, migraines, recurrent UTIs who presents on 01/02 for chief complaint of shortness of breath that started around 4 AM this morning, accompanied with locking of her extremities. Admitted for MS flare, will be treated with IV steroids. #Multiple sclerosis flare #Hx MS since 2002 Presented with shortness of breath and rigid extremities. Per patient, symptoms are similar to prior flareup episodes of MS, last episode 2022. Has been diagnosed with MS since 2002, previous MRI workup completed and confirms diagnosis. Follows Dr. Wilks at [facility], currently not on any treatment. Repeat MRI confirms demyelinating disease, no acute changes concerning for stroke. Neck MRI negative for stenosis. Plan: ? IV Solu-Medrol 1 g daily over 4 hours for 3 day (01/02-01/03) - Will discharge with Medrol dosepak ? Physical therapy - Anticipate discharge to [facility] inpatient rehab center #UTI likely secondary to gram-negative bacteria # Heart palpitations # History of anxiety # History of migraines # History of GERD Primary care team to manage above conditions and ongoing care needs. The patient's management plan was discussed with my attending physician Dr. Shaffer. Leela Renee, PGY-2 Attending Provider Attestation/Addendum I personally have seen and examined the patient at the bedside and agree with the resident's findings, assessment and plan of care. Will continue with the steroid infusion for treatment of flareups. Will continue with the symptomatic treatment for now. She would need to get approval for acute rehab from her insurance at [facility].
--- NOTE | 2025-01-04 16:17 | PCS.ST ---
Follow up note: and dtr are aware physicians are requesting to speak with them regarding Hospice Services. Physicians are aware family has been communicating with [facility] and physician order is required for Hospice.
[2025-01-04] MEDS: DOCUSATE SOD 100 MG CAPSULE PO (17:10)
[2025-01-04] MEDS: MethylPREDNISolone. 1,000 MG in SODIUM CHLORIDE 0.9% 250 ML 250 ML 66.5 MG IV (17:11)
--- NOTE | 2025-01-04 20:34 | PC.NURSE ---
last bm=12/31/24- Prune juice given.
--- NOTE | 2025-01-04 20:40 | PC.NURSE ---
called pharmacist re pt wants to take Vitamin D, per pt this is third day that she missed a dose- Pt takes home med Vitamin D2(ergocalciferol) 1,250mcg (50,000 units) capsule once a week. Per pharmacist we do not have this med available and will have to use pt own med. Advised pt- per pt will have son bring med bottle from home tomorrow, but per pt she might be discharged tomorrow too.
[2025-01-05] VITALS (11 sets, daily range): BP systolic 124–163; BP diastolic 66–115; PULSE 57–105; RESP 14–97; TEMP 36–36.8; O2SAT 89–96; BMI 11.0
[2025-01-05] MEDS: IBUPROFEN TAB 400 MG TABLET 800 MG PO ×2 (04:50→15:20)
[2025-01-05 05:30] LABS: Basophils # (Auto) 0.0 Thou/mm3 (0.0-0.2); Basophils % (Auto) 0 % (0-2.5); Eosinophils # (Auto) 0.0 Thou/mm3 (0.0-0.5); Eosinophils % (Auto) 0 % (0-10); Hematocrit 39.9 % (36.0-46.0); Hemoglobin 13.4 g/dL (12.0-16.0); Immature Granulocytes Auto 0.05 Thou/mm3 (0.00-0.00); Lymphocytes # (Auto) 0.6 Thou/mm3 (1.0-4.8); Lymphocytes % (Auto) 6 % (10-50); Mean Corpuscular HGB Conc 33.6 g/dl (31.0-37.0); Mean Corpuscular Hemoglobin 32.3 pg (25.0-35.0); Mean Corpuscular Volume 96 fL (80-100); Monocytes # (Auto) 0.2 Thou/mm3 (0.0-0.8); Monocytes % (Auto) 2 % (0-12); Neutrophils # (Auto) 8.9 Thou/mm3 (1.8-7.7); Neutrophils % (Auto) 91 % (37-80); Nucleated Red Blood Cell # 0.00 Thou/mm3 (0.00-0.00); Nucleated Red Blood Cell % 0 /100 WBC (0); Platelet Count 288 Thou/mm3 (140-440); RDW Standard Deviation 48.0 fL (36.4-46.3); Red Blood Count 4.15 Miln/mm3 (4.00-5.20); White Blood Count 9.7 Thou/mm3 (3.6-11.0)
[2025-01-05 05:58] LABS: Anion Gap 12 (7-16); BUN/Creatinine Ratio 15 Ratio (12-20); Blood Urea Nitrogen 9 mg/dL (9-23); Calcium 9.0 mg/dL (8.3-10.6); Carbon Dioxide 25.6 mMol/L (20.0-31.0); Chloride 104 mMol/L (98-107); Creatinine (Component) 0.6 mg/dL (0.6-1.3); Estimated Creatinine Clearance 123.2 mL/min (>60); Glucose 135 mg/dL (74-106); Osmolality,Calculated 283 (275-295); Potassium 3.5 mMol/L (3.4-5.1); Sodium 142 mMol/L (136-145); eGFR > 60 See Note
--- NOTE | 2025-01-05 08:38 | EKG_ITS ---
[facility] Test Date: 2025-01-05 Pat Name: DOMENIC CHOI [facility] Gender[facility] Female Vamper: LINDA : 1975 Requested By: Konrad Mosquera Order Number: [id number] Reading MD: Konrad Mosquera Measurements Intervals [place] Rate: 89 P: 48 TN: 136 QRS: 36 QRSD: 85 T: -7 QT: 333 QTc: 407 Interpretive Statements SINUS RHYTHM POSSIBLE RIGHT VENTRICULAR CONDUCTION DELAY NONSPECIFIC ST & T-WAVE ABNORMALITY Compared to ECG 01/02/2025 07:33:40 T-wave abnormality now present Sinus tachycardia no longer present ST (T wave) deviation no longer present /store/S0/[id number].pdf
[2025-01-05] MEDS: PANTOPRAZOLE 40 MG TABLET PO (09:27)
[2025-01-05] MEDS: HEPARIN SOD INJ 5000 UNIT/ML VIAL SC ×2 (09:28→20:21)
[2025-01-05] MEDS: DOCUSATE SOD 100 MG CAPSULE PO (09:28)
[2025-01-05] MEDS: cefTRIAXone/D5w 1gm IV premix 1 GM/50 ML BAG IV (09:28)
--- NOTE | 2025-01-05 09:39 | EVENTNT_ITS ---
Documentation for date of: 01/05/25 Event Note Event Note: Rapid response for chest tightness was called at approximately 8:35 AM in Room 365. Vitals at the time was BP 162/95, HR 94, SpO2 95% on RA. Patient's airway/breathing/circulation was assessed and intact; patient was in acute di stress with SOB and feeling of heaviness of heart. Patient mentioned received a phone call moments before that upsetted her. Patient's last ECHO showed hyperdynamic systolic function. Heart and lung sounds were normal, no leg swelling. Orders: - EKG --> sinus tachy, nonspecific ST & T wave abnormalities - Trop --> neg - Ativan 0.5mg PRN - Nitroglycerin --> but not used by patient - Cardio consulted Patient was reassessed after the rapid response, patient's chest tightness resolved following ativan 0.5mg x1. Cardio recommended outpatient F/U for holter monitoring. Patient was assessed with my attending Dr. Lantigua, and senior resident, Dr. Flores Mosquera MD PGY-1
[2025-01-05 09:53] LABS: Troponin I < 0.002 ng/mL (0.0-0.045)
--- NOTE | 2025-01-05 10:54 | PC.SS ---
Pt had rapid response for chest pain this morning. SS spoke to [facility] who states they are unable to accept pt today due to having rapid response and they will accept pt tomorrow. Dr. Tanner is aware.
--- NOTE | 2025-01-05 13:25 | ESPR_ITS ---
<Statement entered by Wenceslao Lantigua MD - 01/13/25 08:17> I reviewed above note and agree with findings and plans. I have also personally examined the patient with medicine team and went over assessment and plan with medical team including epidemiology intern and resident physician. <Statement entered by Ronak Tanner MD - 01/05/25 16:03> Patient had a rapid response as outlined in prior note. Troponin and EKG were not conclusive and patient's symptoms largely improved after Ativan was given. Cardiology was consulted as the patient follows up with Dr. Lowry; moreover, at this point suspicion for cardiac etiology remains low. Patient completed IV steroid course for MS flare and will be discharged in the next 24 hours to acute care facility with a Medrol pack. Will continue monitoring the patient for any acute changes. I have personally seen and examined the patient. I agree with the resident's assessment and plan as documented below. Ronak Tanner DO PGY-2 Internal Medicine - [facility] Documentation for date of: 01/05/25 Subjective Subjective Interval history: Patient seen at bedside. Patient had rapid response this a.m., see event note. Patient continues to be locking left arm and unable to move both legs but mentions it is improving slowly. Patient's last bowel movement was yesterday. Patient had headache overnight and required ibuprofen. Will aim to discharge with Medrol Dosepak tomorrow. Exam Vital Signs Temp Pulse Resp BP Pulse Ox O2 Del Method 97.9 F 59 L 16 142/79 H 95 Room Air 01/05/25 12:00 01/05/25 12:00 01/05/25 12:00 01/05/25 12:00 01/05/25 12:00 01/05/25 12:00 Narrative Exam General: Awake and in no acute distress. Conversational and non-toxic appearing. HEENT: Normocephalic, atraumatic, mucous membranes moist. Heart: Regular rate and rhythm, normal S1 and S2, no murmurs. Lungs: Clear to auscultation with no wheezing or crackles. Abdomen: Soft, nondistended, nontender, positive bowel sounds. No guarding or rebound tenderness. Neurologic: Alert and oriented x3. Unable to move lower extremities, rigid. Left upper extremity contracted, chronic. 5/5 strength in right upper extremity. Sensation intact throughout. Extremities: Swollen ankles bilaterally but no pitting edema appreciated. Skin: No rash or ecchymoses. Objective Labs 01/05/25 04:50 01/05/25 04:50 Labs: Laboratory Results - last 24 hr 01/05/25 01/05/25 04:50 09:15 WBC 9.7 RBC 4.15 Hgb 13.4 Hct 39.9 MCV 96 MCH 32.3 MCHC 33.6 RDW Std Deviation 48.0 H Plt Count 288 Neut % (Auto) 91 H Lymph % (Auto) 6 L [place] % (Auto) 2 Eos % (Auto) 0 Baso % (Auto) 0 Neut # (Auto) 8.9 H Lymph # (Auto) 0.6 L [place] # (Auto) 0.2 Eos # (Auto) 0.0 Baso # (Auto) 0.0 Immature Gran # (Auto) 0.05 H Absolute Nucleated RBC 0.00 Immature Gran % 1 H Nucleated RBC % 0 Sodium 142 Potassium 3.5 Chloride 104 Carbon Dioxide 25.6 Anion Gap 12 BUN 9 Creatinine 0.6 Estim Creat Clear Calc 123.2 eGFR > 60 BUN/Creatinine Ratio 15 Glucose 135 H Calculated Osmolality 283 Calcium 9.0 Troponin I < 0.002 Quality Measures Quality Measures none Assessment & Plan Assessment Current Active Medications: Generic Name Dose Route Start Last Admin Trade Name Steve PRN Reason Stop Dose Admin Atorvastatin Calcium 20 mg 01/04/25 21:00 01/04/25 20:12 Atorvastatin Calcium 20 Mg Tablet PO 02/03/25 20:59 Not Given HS ELVER Docusate Sodium 100 mg 01/04/25 16:45 01/05/25 09:28 Docusate Sod 100 Mg Capsule PO 02/03/25 16:44 100 mg QDAY ELVER Administration Protocol Heparin Sodium (Porcine) 5,000 unit 01/02/25 21:00 01/05/25 09:28 Heparin Sod Inj 5000 Unit/Ml Vial SC 01/16/25 20:59 5,000 unit Q12HR ELVER Administration Methylprednisolone Sodium 266 mls @ 66.5 mls/hr 01/02/25 17:47 01/04/25 17:11 Succinate 1,000 mg/ Sodium IV 01/05/25 16:14 66.5 mls/hr Chloride Q24H ELVER Administration Ceftriaxone Sodium/Dextrose 1 gm in 50 mls @ 100 mls/hr 01/03/25 15:16 01/05/25 09:28 Rocephin/D5w 1gm Iv Premix IV 01/10/25 15:15 100 mls/hr QDAY ELVER Administration Ibuprofen 800 mg 01/04/25 15:53 01/05/25 04:50 Ibuprofen Tab 400 Mg Tablet PO 02/03/25 15:52 800 mg Q8HR PRN Administration Headaches Lorazepam 0.5 mg 01/02/25 16:07 01/05/25 08:50 Lorazepam 0.5 Mg Tablet PO 01/07/25 16:06 0.5 mg Q8HR PRN Administration AGITATION OR ANXIETY Nitroglycerin 0.4 mg 01/05/25 08:45 Nitroglycerin 0.4 Mg Subl Btl #25 SL Q5MIN PRN CHEST PAIN Ondansetron HCl 4 mg 01/02/25 15:04 Ondansetron Inj 2 Mg/Ml Inj 2 Ml IVP 02/01/25 15:03 Q6H PRN NAUSEA OR VOMITING Protocol Pantoprazole Sodium 40 mg 01/03/25 09:00 01/05/25 09:27 Pantoprazole 40 Mg Tablet PO 02/02/25 08:59 40 mg QDAY ELVER Administration Plan ssessment: 49-year-old female with past medical history of multiple sclerosis since 2002, migraines, recurrent UTIs who presented on 01/02 for CC of SOB in AM, accompanied with locking of her extremities. Admitted for MS flare, treated with IV steroids. #Multiple sclerosis flare #Hx MS since 2002 Presented with shortness of breath and rigid extremities. Per patient, symptoms are similar to prior flareup episodes of MS, last episode 2022. Has been diagnosed with MS since 2002, previous MRI workup completed and confirms diagnosis. Follows Dr. Wilks at [facility], currently not on any treatment. Repeat MRI confirms demyelinating disease, no acute changes concerning for stroke. Neck MRI negative for stenosis. Plan: ? IV Solu-Medrol 1 g daily q24h for 3 day course per neurology recommendations (01/02- 01/04) - Will discharge with Medrol dosepak ? Neurology Dr. Shaffer consulted, appreciate recommendations ? Physical therapy consulted - Anticipate discharge to [facility] inpatient rehab center #UTI, GNR Endorses urinary frequency and foul smelling urine for the past 3 weeks. Completed 2 full courses of Macrobid and half a course of Bactrim without improvement. By PCP, was told there is concern for renal stone. WBC WNL. UA on 12/21 shows calcium oxalate crystals with elevated WBC and 3+ bacteria, previously grew E. coli, pansensitive. Note patient is urinary incontinent, placing her at increased risk for UTIs. Also had no sensation below her hips. CT A/P negative for nephrolithiasis. Repeat urine culture taken 01/03) showed GNR with 5000 colonies Plan: ? Continue antibiotics for 1 more day - IV CTX 1 g (01/03- #Hx of Headaches Patient mentions Tylenol does not work for her headaches and she takes Ibuprofen 800mg q6-8hrs PRN at home Plan - Ibuprofen 800mg q8hr PRN #Constipation Last BM 2 days ago Plan Colase 100mg daily #Heart palpitations Endorses intermittent palpitations for the past couple weeks. Had seen Dr. Lowry previously, was to be placed on Holter monitor and obtain echo outpatient on next upcoming appointment. Continues to endorse palpitations and chest pressure today, otherwise no chest pain. Possibly secondary to MS versus anxiety. Troponin negative. EKG showed sinus tachycardia with no ST or T wave abnormalities. Plan: ?ECHO showed hyperdynamic systolic function. Estimated EF 65-70%. -Cardiology consulted Dr. Lowry, recommends outpatient follow-up for Holter monitoring. ?Telemetry # History of anxiety # History of migraines # History of GERD Chronic medical issues. Takes Ativan 0.5 mg as needed for anxiety and ibuprofen for migraines at home. ?Ativan 0.5 mg nightly ?Tylenol as needed ?Protonix daily Health Maintenance Disposition: Telemetry DVT prophylaxis: Heparin GI prophylaxis: Protonix Diet: Regular CODE STATUS: Limited, refused chest compressions Case discussed with my attending Dr. Lantigua, and senior resident, Dr. Flores Mosquera MD PGY-1
--- NOTE | 2025-01-05 14:11 | ESCONSULT_ITS ---
<Statement entered by Katrin Lowry MD - 01/08/25 16:43> I personally examined the patient evaluated apparently she came to the hospital multiple issues multiple sclerosis and neurologic issues but she also a lot of anxiety and appears to have had discomfort in the chest cardiac echo showed hyperkinetic left ventricular wall motion with normal ejection fraction. Troponin negative patient's chest pain appears to be noncardiac due to anxiety recommended to continue medical management reassured about negative findings. Reassured with normal echo. And will monitor patient as an outpatient patient to be sent back to rehabilitation whenever she is medically stable HPI Data of Consult Requesting Physician: Wenceslao Lantigua MD Admitting Provider: Ruddy Elise DO Attending Provider: Wenceslao Lantigua MD Primary Care Provider: Zach Pacheco Consult Narrative History of present illness: Clara Cook is a 49-year-old female with a history of multiple sclerosis, migraines, anxiety, and recurrent UTIs who was admitted for flare-up of her multiple sclerosis. Neurology was consulted and recommended IV steroids. However, today a rapid response was called for chest discomfort and so cardiology was consulted. She described the discomfort as pressure-like, substernal, and associated with diaphoreisis but began after she had an upsetting phone call and improved after taking an anxiolytic. Troponins were obtained and were negative and EKG largely unremarkable. Her hyperdynamic heart as seen on echo is likely secondary to catecholamine release secondary to her anxiety. Spoke to patient at bedside and told her that her symptoms are likely related to anxiety given what was previously mentioned and can continue to follow-up outpatient. Surgical history: Hysterectomy Social history: Former social smoker, quit 20 years ago; denies current alcohol use, occasionally uses marijuana Allergies: Codeine (vomiting and hives), erythromycin, adhesive tape, promethazine (panic attacks), hydromorphone and morphine (severe nausea vomiting) cc:: cc: Wenceslao Lantigua MD Review of Systems Review of Systems Systems Reviewed: All systems reviewed, normal except as documented Exam Vital Signs Temp Pulse Resp BP Pulse Ox O2 Del Method 97.9 F 59 L 16 142/79 H 95 Room Air 01/05/25 12:00 01/05/25 12:00 01/05/25 12:00 01/05/25 12:00 01/05/25 12:00 01/05/25 12:00 Narrative Exam General: AOx3, no acute distress, able to speak full sentences HEENT: NC/AT, mucous membranes moist, bilateral sclera anicteric Cardiovascular: regular rate and rhythm, S1/S2 present, no murmurs appreciated Pulmonary: clear to auscultation bilaterally, no rales/rhonchi/wheezes Abdominal: soft, non-tender, non-distended, no rebound/guarding, normal bowel sounds present Musculoskeletal: normal ROM, no peripheral edema Skin: warm and dry, intact, no rashes Results Labs 01/05/25 04:50 01/05/25 04:50 Labs: Short CBC 01/05/25 Range/Units 04:50 WBC 9.7 (3.6-11.0) Thou/mm3 Hgb 13.4 (12.0-16.0) g/dL Hct 39.9 (36.0-46.0) % Plt Count 288 (140-440) Thou/mm3 BMP 01/05/25 04:50 Sodium 142 Potassium 3.5 Chloride 104 Carbon Dioxide 25.6 BUN 9 Creatinine 0.6 Glucose 135 H Calcium 9.0 Cardiac Enzymes 01/05/25 Range/Units 09:15 Troponin I < 0.002 (0.0-0.045) ng/mL Quality Measures Quality Measures none Medications Home Medications and Allergies Home Medications ?Medication ?Instructions ?Recorded ?Confirmed ?Type ibuprofen 800 mg tablet 800 mg PO Q6HR PRN PAIN #0 t abs 07/26/14 01/02/25 History lorazepam 0.5 mg tablet 0.5 mg PO BID PRN Anxiety #0 tabs 07/26/14 01/02/25 History ergocalciferol (vitamin D2) 1,250 1,250 mcg PO .once a week 01/02/25 01/04/25 History mcg (50,000 unit) capsule pantoprazole 40 mg tablet,delayed 40 mg PO .once a day 01/02/25 01/04/25 History release Allergies Allergy/AdvReac Type Severity Reaction Status Date / Time codeine Allergy Severe VOMITING Verified 06/17/17 06:08 AND HIVES erythromycin base Allergy Severe VOMITING Verified 06/17/17 06:08 AND HIVES adhesive tape Allergy Verified 06/19/17 09:37 promethazine AdvReac Severe PANIC Verified 06/17/17 06:08 ATTACKS hydromorphone AdvReac Intermediate SEVERE Verified 06/17/17 06:08 NAUSEA AND VOMITING morphine AdvReac Unknown SEVERE Verified 06/17/17 06:08 NAUSEA AND VOMITING Ocrevis Allergy Unknown Uncoded 06/29/22 21:04 Visit Medications Atorvastatin Calcium (Atorvastatin Calcium 20 Mg Tablet) 20 mg PO HS [facility] Stop: 02/03/25 20:59 Last Admin: 01/04/25 20:12 Dose: Not Given Docusate Sodium (Docusate Sod 100 Mg Capsule) 100 mg PO QDAY [facility]; Protocol Stop: 02/03/25 16:44 Last Admin: 01/05/25 09:28 Dose: 100 mg Heparin Sodium (Porcine) (Heparin Sod Inj 5000 Unit/Ml Vial) 5,000 unit SC Q12HR [facility] Stop: 01/16/25 20:59 Last Admin: 01/05/25 09:28 Dose: 5,000 unit Methylprednisolone Sodium Succinate 1,000 mg/ Sodium Chloride 266 mls @ 66.5 mls/hr IV Q24H [facility] Stop: 01/05/25 16:14 Last Admin: 01/04/25 17:11 Dose: 66.5 mls/hr Ceftriaxone Sodium/Dextrose (Rocephin/D5w 1gm Iv Premix) 1 gm in 50 mls @ 100 mls/hr IV QDAY [facility] Stop: 01/10/25 15:15 Last Admin: 01/05/25 09:28 Dose: 100 mls/hr Ibuprofen (Ibuprofen Tab 400 Mg Tablet) 800 mg PO Q8HR PRN PRN Reason: Headaches Stop: 02/03/25 15:52 Last Admin: 01/05/25 04:50 Dose: 800 mg Lorazepam (Lorazepam 0.5 Mg Tablet) 0.5 mg PO Q8HR PRN PRN Reason: AGITATION OR ANXIETY Stop: 01/07/25 16:06 Last Admin: 01/05/25 08:50 Dose: 0.5 mg Nitroglycerin (Nitroglycerin 0.4 Mg Subl Btl #25) 0.4 mg SL Q5MIN PRN PRN Reason: CHEST PAIN Ondansetron HCl (Ondansetron Inj 2 Mg/Ml Inj 2 Ml) 4 mg IVP Q6H PRN; Protocol PRN Reason: NAUSEA OR VOMITING Stop: 02/01/25 15:03 Pantoprazole Sodium (Pantoprazole 40 Mg Tablet) 40 mg PO QDAY [facility] Stop: 02/02/25 08:59 Last Admin: 01/05/25 09:27 Dose: 40 mg Discontinued Medications Acetaminophen (Acetaminophen 325 Mg Tablet) 650 mg PO Q6H PRN PRN Reason: Fever >101.5 or pain 1-3 Stop: 02/01/25 15:03 Last Admin: 01/04/25 06:22 Dose: 650 mg Acetaminophen (Acetaminophen 325 Mg Tablet) 650 mg PO Q6H PRN PRN Reason: Fever >101.5 or pain 1-3 Stop: 02/01/25 15:03 Aspirin (Aspirin 81 Mg Chew) 324 mg PO X1 ONE Stop: 01/02/25 07:46 Last Admin: 01/02/25 07:59 Dose: Not Given Famotidine (Famotidine 20 Mg Tablet) 40 mg PO X1 ONE Stop: 01/02/25 07:45 Last Admin: 01/02/25 08:00 Dose: Not Given Famotidine (Famotidine Inj 10 Mg/Ml Vial 2 Ml) 20 mg IVP X1 ONE Stop: 01/02/25 08:11 Last Admin: 01/02/25 08:31 Dose: 20 mg Methylprednisolone Sodium Succinate 1,000 mg/ Sodium Chloride 266 mls @ 266 mls/hr IV X1 ONE Stop: 01/02/25 14:59 Last Admin: 01/02/25 15:01 Dose: Not Given Ibuprofen (Ibuprofen Tab 400 Mg Tablet) 400 mg PO X1 ONE Stop: 01/02/25 20:03 Last Admin: 01/02/25 20:30 Dose: Not Given Ibuprofen (Ibuprofen Tab 400 Mg Tablet) 800 mg PO X1 ONE Stop: 01/03/25 08:31 Last Admin: 01/03/25 09:09 Dose: 800 mg Ibuprofen (Ibuprofen Tab 600 Mg Tablet) 600 mg PO X1 ONE Stop: 01/04/25 00:34 Last Admin: 01/04/25 00:44 Dose: 600 mg Ibuprofen (Ibuprofen Tab 400 Mg Tablet) 800 mg PO X1 ONE Stop: 01/04/25 14:19 Last Admin: 01/04/25 14:32 Dose: 800 mg Lorazepam (Lorazepam 0.5 Mg Tablet) 0.5 mg PO X1 ONE Stop: 01/02/25 07:42 Last Admin: 01/02/25 08:00 Dose: Not Given Midazolam HCl (Midazolam Inj 1 Mg/Ml Vial 2 Ml) 1 mg IVP X1 ONE Stop: 01/02/25 08:11 Last Admin: 01/02/25 08:31 Dose: 1 mg Midazolam HCl (Midazolam Inj 1 Mg/Ml Vial 2 Ml) 1 mg IVP X1 ONE Stop: 01/02/25 12:05 Last Admin: 01/02/25 12:11 Dose: 1 mg Ondansetron HCl (Ondansetron Inj 2 Mg/Ml Inj 2 Ml) 4 mg IVP X1 ONE; Protocol Stop: 01/02/25 08:11 Last Admin: 01/02/25 08:30 Dose: 4 mg Pantoprazole Sodium (Pantoprazole Inj 40 Mg Vial) 40 mg IVP X1 ONE Stop: 01/02/25 07:45 Last Admin: 01/02/25 07:56 Dose: 40 mg Polyethylene Glycol (Polyethylene Glycol 17 Gm Packet) 17 gm PO QDAY [facility] Stop: 02/03/25 15:59 Last Admin: 01/04/25 16:39 Dose: Not Given Sennosides (Senna Tablet) 1 tab PO QDAY [facility]; Protocol Stop: 02/03/25 15:59 Last Admin: 01/04/25 16:39 Dose: Not Given Assessment & Plan Plan Clara Cook is a 49-year-old female with a history of multiple sclerosis, migraines, anxiety, and recurrent UTIs who was admitted for flare-up of her multiple sclerosis. Rapid response was called for chest discomfort and cardiology was consulted. #Heart palpitations #Chest pain Endorses intermittent palpitations for the past couple weeks with some chest discomfort. Rapid response was called for chest discomfort with associated diaphoresis. Troponins were negative and EKG largely unremarkable and given echo findings and improvement after anxiolytic, patient is likely experiencing episodes of anxiety vs panic attacks. She was spoken to at bedside and discussed with her what was mentioned. She follows Dr. Lowry outpatient and will see in clinic after discharge. Echo on 01/02 showed: Normal left ventricular size. Hyperdynamic systolic function. Estimated EF 65-70%. Normal right ventricular size and function. Trace tricuspid regurgitation noted. ? Anxiolytic as needed ? Follow-up outpatient upon discharge for Holter monitoring #Multiple sclerosis flare #History of multiple sclerosis #UTI likely secondary to gram-negative bacteria #Headaches #Constipation #History of anxiety #History of migraines #History of GERD ? Continue management per primary team ----- Plan discussed with attending physician Dr. Alen Butler MD PGY-2 Internal Medicine
[2025-01-05 16:39] LABS: Troponin I < 0.002 ng/mL (0.0-0.045)
[2025-01-05] MEDS: ERGOCALCIFEROL 1.25 MG PO (18:35)
--- NOTE | 2025-01-05 23:57 | PD.RESPRO ---
Documentation for date of: 01/05/25 Subjective Subjective Interval history: Patient examined at bedside. She had rapid response this morning due to chest discomfort. EKG and troponins were negative. Discomfort has improved most likely due to her underlying anxiety. Labs reviewed and unremarkable. Today is last day of IV steroid dose. There is improvement in movement of right lower extremity and left upper extremity. Noticeable rigidity on physical exam. Denies any symptoms of dysuria. Plan to transition to Medrol Dosepak starting tomorrow. Exam Vital Signs Temp Pulse Resp BP Pulse Ox O2 Del Method 96.9 F 72 14 146/76 H 93 L Room Air 01/05/25 20:00 01/05/25 22:16 01/05/25 20:00 01/05/25 20:00 01/05/25 20:00 01/05/25 20:00 Narrative Exam General: Middle aged female, No acute distress, cooperative HEENT: NCAT, No JVD noted. Mucosa moist. Pupils are equal and reactive to light bilaterally Cardiovascular: Normal S1 and S2. Regular rate and rhythm. Respiratory: Lungs are clear to auscultation bilaterally. No wheezing or crackles heard. Abdomen: Soft, nontender, not distended, normal bowel sounds. Skin: Warm to touch, dry, no rashes noted Musculoskeletal: No gross injuries. Able to move right U/LE, cannot move left LE. Better movement in left arm. No pitting edema Neuro: Alert and oriented x3. Movement as noted above, sensation intact, hypertonia left arm Psych: Normal affect and mood Objective Labs 01/05/25 04:50 01/05/25 04:50 Labs: Laboratory Results - last 24 hr 01/05/25 01/05/25 01/05/25 04:50 09:15 15:45 WBC 9.7 RBC 4.15 Hgb 13.4 Hct 39.9 MCV 96 MCH 32.3 MCHC 33.6 RDW Std Deviation 48.0 H Plt Count 288 Neut % (Auto) 91 H Lymph % (Auto) 6 L [place] % (Auto) 2 Eos % (Auto) 0 Baso % (Auto) 0 Neut # (Auto) 8.9 H Lymph # (Auto) 0.6 L [place] # (Auto) 0.2 Eos # (Auto) 0.0 Baso # (Auto) 0.0 Immature Gran # (Auto) 0.05 H Absolute Nucleated RBC 0.00 Immature Gran % 1 H Nucleated RBC % 0 Sodium 142 Potassium 3.5 Chloride 104 Carbon Dioxide 25.6 Anion Gap 12 BUN 9 Creatinine 0.6 Estim Creat Clear Calc 123.2 eGFR > 60 BUN/Creatinine Ratio 15 Glucose 135 H Calculated Osmolality 283 Calcium 9.0 Troponin I < 0.002 < 0.002 Quality Measures Quality Measures none Assessment & Plan Assessment Current Active Medications: Generic Name Dose Route Start Last Admin Trade Name Freq PRN Reason Stop Dose Admin Atorvastatin Calcium 20 mg 01/04/25 21:00 01/05/25 20:21 Atorvastatin Calcium 20 Mg Tablet PO 02/03/25 20:59 Not Given HS [facility] Ergocalciferol ( 0 ea 01/05/25 18:30 01/05/25 18:35 Vitamin D2) 1.25 Mg PO 02/04/25 18:29 1 capsule Gelcapsule QWEEK [facility] Administration Docusate Sodium 100 mg 01/04/25 16:45 01/05/25 09:28 Docusate Sod 100 Mg Capsule PO 02/03/25 16:44 100 mg QDAY [facility] Administration Protocol Heparin Sodium (Porcine) 5,000 unit 01/02/25 21:00 01/05/25 20:21 Heparin Sod Inj 5000 Unit/Ml Vial SC 01/16/25 20:59 5,000 unit Q12HR [facility] Administration Ceftriaxone Sodium/Dextrose 1 gm in 50 mls @ 100 mls/hr 01/03/25 15:16 01/05/25 09:28 Rocephin/D5w 1gm Iv Premix IV 01/10/25 15:15 100 mls/hr QDAY [facility] Administration Ibuprofen 800 mg 01/04/25 15:53 01/05/25 15:20 Ibuprofen Tab 400 Mg Tablet PO 02/03/25 15:52 800 mg Q8HR PRN Administration Headaches Lorazepam 0.5 mg 01/02/25 16:07 01/05/25 23:03 Lorazepam 0.5 Mg Tablet PO 01/07/25 16:06 0.5 mg Q8HR PRN Administration AGITATION OR ANXIETY Nitroglycerin 0.4 mg 01/05/25 08:45 Nitroglycerin 0.4 Mg Subl Btl #25 SL Q5MIN PRN CHEST PAIN Ondansetron HCl 4 mg 01/02/25 15:04 Ondansetron Inj 2 Mg/Ml Inj 2 Ml IVP 02/01/25 15:03 Q6H PRN NAUSEA OR VOMITING Protocol Pantoprazole Sodium 40 mg 01/03/25 09:00 01/05/25 09:27 Pantoprazole 40 Mg Tablet PO 02/02/25 08:59 40 mg QDAY [facility] Administration Plan Patient is a 49-year-old female with past medical history of multiple sclerosis since 2002, migraines, recurrent UTIs who presents on 01/02 for chief complaint of shortness of breath that started around 4 AM this morning, accompanied with locking of her extremities. Admitted for MS flare, will be treated with IV steroids. #Multiple sclerosis flare #Hx MS since 2002 Presented with shortness of breath and rigid extremities. Per patient, symptoms are similar to prior flareup episodes of MS, last episode 2022. Has been diagnosed with MS since 2002, previous MRI workup completed and confirms diagnosis. Follows Dr. Wilks at [facility], currently not on any treatment. Repeat MRI confirms demyelinating disease, no acute changes concerning for stroke. Neck MRI negative for stenosis. Plan: ? IV Solu-Medrol 1 g daily over 4 hours for 3 day (01/02-01/03) - Will discharge with Medrol dosepak ? Physical therapy - Anticipate discharge to [facility] #UTI likely secondary to gram-negative bacteria # Heart palpitations # History of anxiety # History of migraines # History of GERD Primary care team to manage above conditions and ongoing care needs. The patient's management plan was discussed with my attending physician Dr. Shaffer. Leela Renee, PGY-2 Attending Provider Attestation/Addendum I personally have seen and examined the patient at the bedside and I agreed with the resident's findings, assessment and plan of care. Patient has finished with her steroid infusion for 4 days. Noted significant improvement in strength of her upper extremities and better range of motion involving the right more than the left or lower extremities. Patient will continue with the Medrol Dosepak starting tomorrow. Patient is stable from neurology standpoint for discharge to [facility] for continuing physical therapy. She will follow-up with neurology as scheduled.
[2025-01-06] VITALS: BP 124/65; PULSE 54; PULSE 65; RESP 18; TEMP 36.7; O2SAT 95
[2025-01-06 04:00] VITALS: BP 144/80; PULSE 64; PULSE 65; RESP 17; TEMP 36.6; O2SAT 94
--- NOTE | 2025-01-06 07:51 | ESPR_ITS ---
<Statement entered by Katrin Lowry MD - 01/08/25 16:43> Patient is evaluated again with resident physician PGY 2 Dr. Konrad BUTLER patient is clinically stable can be discharged not having further episode angina pectus will monitor as an outpatient if she has any cardiac symptoms or recurrence of symptoms. Documentation for date of: 01/06/25 Subjective Subjective Interval history: No acute overnight events. No additional episodes of chest discomfort at this time. Vital signs stable, CBC unremarkable, and CMP shows slight hypokalemia that was repleted. Given low concern for cardiac etiology of patient's symptoms, can continue current management and cardiology will sign off on case. Exam Vital Signs Temp Pulse Resp BP Pulse Ox O2 Del Method 97.9 F 64 17 144/80 H 94 L Room Air 01/06/25 04:00 01/06/25 04:00 01/06/25 04:00 01/06/25 04:00 01/06/25 04:00 01/06/25 04:00 Narrative Exam General: AOx3, no acute distress, able to speak full sentences HEENT: NC/AT, mucous membranes moist, bilateral sclera anicteric Cardiovascular: regular rate and rhythm, S1/S2 present, no murmurs appreciated Pulmonary: clear to auscultation bilaterally, no rales/rhonchi/wheezes Abdominal: soft, non-tender, non-distended, no rebound/guarding, normal bowel sounds present Musculoskeletal: normal ROM, no peripheral edema Skin: warm and dry, intact, no rashes Objective Labs 01/06/25 08:45 01/06/25 08:45 Labs: Laboratory Results - last 24 hr 01/05/25 01/05/25 09:15 15:45 Troponin I < 0.002 < 0.002 Quality Measures Quality Measures none Assessment & Plan Assessment Current Active Medications: Generic Name Dose Route Start Last Admin Trade Name Freq PRN Reason Stop Dose Admin Atorvastatin Calcium 20 mg 01/04/25 21:00 01/05/25 20:21 Atorvastatin Calcium 20 Mg Tablet PO 02/03/25 20:59 Not Given HS [facility] Ergocalciferol ( 0 ea 01/05/25 18:30 01/05/25 18:35 Vitamin D2) 1.25 Mg PO 02/04/25 18:29 1 capsule Gelcapsule QWEEK [facility] Administration Docusate Sodium 100 mg 01/04/25 16:45 01/05/25 09:28 Docusate Sod 100 Mg Capsule PO 02/03/25 16:44 100 mg QDAY [facility] Administration Protocol Heparin Sodium (Porcine) 5,000 unit 01/02/25 21:00 01/05/25 20:21 Heparin Sod Inj 5000 Unit/Ml Vial SC 01/16/25 20:59 5,000 unit Q12HR [facility] Administration Ceftriaxone Sodium/Dextrose 1 gm in 50 mls @ 100 mls/hr 01/03/25 15:16 01/05/25 09:28 Rocephin/D5w 1gm Iv Premix IV 01/10/25 15:15 100 mls/hr QDAY [facility] Administration Ibuprofen 800 mg 01/04/25 15:53 01/05/25 15:20 Ibuprofen Tab 400 Mg Tablet PO 02/03/25 15:52 800 mg Q8HR PRN Administration Headaches Lorazepam 0.5 mg 01/02/25 16:07 01/06/25 07:38 Lorazepam 0.5 Mg Tablet PO 01/07/25 16:06 0.5 mg Q8HR PRN Administration AGITATION OR ANXIETY Nitroglycerin 0.4 mg 01/05/25 08:45 Nitroglycerin 0.4 Mg Subl Btl #25 SL Q5MIN PRN CHEST PAIN Ondansetron HCl 4 mg 01/02/25 15:04 Ondansetron Inj 2 Mg/Ml Inj 2 Ml IVP 02/01/25 15:03 Q6H PRN NAUSEA OR VOMITING Protocol Pantoprazole Sodium 40 mg 01/03/25 09:00 01/05/25 09:27 Pantoprazole 40 Mg Tablet PO 02/02/25 08:59 40 mg QDAY [facility] Administration Plan Clara Cook is a 49-year-old female with a history of multiple sclerosis, migraines, anxiety, and recurrent UTIs who was admitted for flare-up of her multiple sclerosis. Rapid response was called for chest discomfort and cardiology was consulted. #Heart palpitations #Chest pain Endorses intermittent palpitations for the past couple weeks with some chest discomfort. Rapid response was called for chest discomfort with associated diaphoresis. Troponins were negative and EKG largely unremarkable and given echo findings and improvement after anxiolytic, patient is likely experiencing episodes of anxiety vs panic attacks. She was spoken to at bedside and discussed with her what was mentioned. She follows Dr. Lowry outpatient and will see in clinic after discharge. Echo on 01/02 showed: Normal left ventricular size. Hyperdynamic systolic function. Estimated EF 65-70%. Normal right ventricular size and function. Trace tricuspid regurgitation noted. ? Anxiolytic as needed ? Follow-up outpatient upon discharge for Holter monitoring ? Cardiology signing off #Multiple sclerosis flare #History of multiple sclerosis #UTI likely secondary to gram-negative bacteria #Headaches #Constipation #History of anxiety #History of migraines #History of GERD ? Continue management per primary team ----- Plan discussed with attending physician Dr. Alen Butler MD PGY-2 Internal Medicine
[2025-01-06 08:00] VITALS: BP 148/69; PULSE 66; PULSE 79; RESP 18; TEMP 36.1; O2SAT 94
[2025-01-06] MEDS: PANTOPRAZOLE 40 MG TABLET PO (08:39)
[2025-01-06] MEDS: HEPARIN SOD INJ 5000 UNIT/ML VIAL SC (08:39)
[2025-01-06] MEDS: cefTRIAXone/D5w 1gm IV premix 1 GM/50 ML BAG IV (08:40)
--- NOTE | 2025-01-06 09:08 | PC.SS ---
Follow up note: SS has sent updated inquiry to [facility] upon their request. SS spoke to Elin from [facility] who is aware pt is ready for d/c today.
[2025-01-06 09:25] LABS: Basophils # (Auto) 0.0 Thou/mm3 (0.0-0.2); Basophils % (Auto) 0 % (0-2.5); Eosinophils # (Auto) 0.0 Thou/mm3 (0.0-0.5); Eosinophils % (Auto) 0 % (0-10); Hematocrit 39.6 % (36.0-46.0); Hemoglobin 13.3 g/dL (12.0-16.0); Immature Granulocytes Auto 0.05 Thou/mm3 (0.00-0.00); Lymphocytes # (Auto) 1.3 Thou/mm3 (1.0-4.8); Lymphocytes % (Auto) 19 % (10-50); Mean Corpuscular HGB Conc 33.6 g/dl (31.0-37.0); Mean Corpuscular Hemoglobin 32.4 pg (25.0-35.0); Mean Corpuscular Volume 96 fL (80-100); Monocytes # (Auto) 0.9 Thou/mm3 (0.0-0.8); Monocytes % (Auto) 13 % (0-12); Neutrophils # (Auto) 4.7 Thou/mm3 (1.8-7.7); Neutrophils % (Auto) 67 % (37-80); Nucleated Red Blood Cell # 0.00 Thou/mm3 (0.00-0.00); Nucleated Red Blood Cell % 0 /100 WBC (0); Platelet Count 268 Thou/mm3 (140-440); RDW Standard Deviation 48.5 fL (36.4-46.3); Red Blood Count 4.11 Miln/mm3 (4.00-5.20); White Blood Count 7.0 Thou/mm3 (3.6-11.0)
[2025-01-06 09:46] LABS: Anion Gap 12 (7-16); BUN/Creatinine Ratio 27 Ratio (12-20); Blood Urea Nitrogen 16 mg/dL (9-23); Calcium 8.9 mg/dL (8.3-10.6); Carbon Dioxide 28.5 mMol/L (20.0-31.0); Chloride 102 mMol/L (98-107); Creatinine (Component) 0.6 mg/dL (0.6-1.3); Estimated Creatinine Clearance 123.2 mL/min (>60); Glucose 112 mg/dL (74-106); Osmolality,Calculated 285 (275-295); Potassium 3.2 mMol/L (3.4-5.1); Sodium 142 mMol/L (136-145); eGFR > 60 See Note
[2025-01-06 12:00] VITALS: BP 150/83; PULSE 67; PULSE 79; RESP 19; TEMP 36.3; O2SAT 92
--- NOTE | 2025-01-06 13:14 | PC.SS ---
Addendum entered by Catherine Ramos 01/06/25 15:31: SS has setup gurney transportation with Guicho from [facility] for gurney transport to [facility] for 6pm.? Ref# [id number].? SS has requested [facility].? Per [facility] territory sales representative, [facility] is not a guaranteed transport company.? Estimated time is 3-4 hours.? SS has sent patient?s facesheet and ambulance form to [facility] using [employer] [facility].? SS has spoken to Princess at [facility] who has confirmed she has been contacted by [employer] and transportation time is 6pm. Elin from [facility] is aware and provided number for report [phone] (number was provided to bedside nurse, Vickey). Bedside nurseVickey has also communicated with Elin. Pt is aware of transport time. SS offered to contact patient's son and pt refused (stating son is aware). Original Note: SS spoke to Elin from [facility] who is now requesting d/c summary and transportation to be setup for 6pm or later. However, they will not accept pt until they have received patient's d/c summary.
--- NOTE | 2025-01-06 13:20 | ESDS_ITS ---
<Statement entered by Wenceslao Lantigua MD - 01/13/25 08:18> I reviewed above note and agree with findings and plans. I have also personally examined the patient with medicine team and went over assessment and plan with medical team including graduate internship and resident physician. Planned Discharge Date 01/06/25 DS: Providers Provider Date of admission: 01/02/25 15:04 Primary care physician: Zach Pacheco Admitting Provider: Ruddy Elise DO Attending Provider on Admission: Wenceslao Lantigua MD Consults: 01/02/25 15:08 Consult to Neurology / Tele-Neurology Stat Comment: Consulting Provider: Christian Shaffer 01/02/25 16:04 Referral Physical Therapy Routine Comment: Physician Instructions: 01/05/25 08:45 Consult to Cardiology Stat Comment: Consulting Provider: Katrin Lowry Instructions: chest tightness this AM. ECHO showed hyperdynamic function Attending Provider on DC: Wenceslao Lantigua MD Discharging Provider: Wenceslao Lantigua MD DS: Diagnosis Problem List Completed Was Problem List Reviewed/Reconciled?: Yes Hospital Course Hospital Course Hospital course: 49-year-old female with past medical history of multiple sclerosis dx in 2002, migraines, recurrent UTIs who presented on 01/02/25 for CC of SOB, accompanied with locking of her extremities. Patient was admitted for MS flare, treated with high dose IV steroids x 3days. Patient also had ongoing urinary tract infection which required antibiotics. ED course: Patient presented to the Emergency Department with initial vitals of BP 153/80 and a heart rate of 133, but was otherwise afebrile and saturating well on room air; an EKG showed sinus tachycardia without other abnormalities. Labs, including a CBC, CMP, troponins, TSH, and T4, were all unremarkable. Imaging revealed a repeat pattern of demyelinating disease on brain MRI and was negative for stenosis on neck MRA, though a CXR was concerning for atelectasis or possible left base pneumonia. In ED, the patient received Protonix, Zofran, famotidine, and two doses of midazolam, and was subsequently admitted for a multiple sclerosis flare. Hospital course: MRI brain on admission showed stable MS lesions nothing new or active. Patient recieved IV Solu-Medrol 1 g daily 3-day course per neurology recommendations. The locking of her left arm and bilateral legs present at discharge, however improving according to patient. Patient also had been experiencing foul- smelling urine for the past 3 weeks with urinary frequency. Urine culture positive for gram-negative rods with 5000 colonies per milliliter. Patient was started on ceftriaxone and received 4 days of antibiotics with full resolution of UTI symptoms. Patient also received ibuprofen 800 mg as needed for headaches. Rapid response was called 01/05/25 for chest discomfort and cardiology was consulted for assessment, patient had ECHO done on 02/02/25 which showed hyperdynamic systolic function with estimated EF 65 to 70%. At this time, etiology of chest discomfort and palpitations thought to be related to anxiety and low suspicion of cardiac cause, however recommended outpatient follow-up with cardiology. At time of discharge patient improving to baseline and discharged to [facility] and instructed to complete steroid regimen for MS flare for a total of 12 days, as described below. Patient to follow-up with Dr. Wilks at [facility] for further management of MS. patient has also been instructed to follow-up with Dr. Lowry outpatient for holter monitoring for evaluation of heart palpitations. Discharge instructions: Complete steroid regimen for MS flare with prednisone 80mg x3 days, 60mg x3days, 40mg x 3days, 20mg x3days (LD on January 17) Take atorvastatin 20mg tablet by mouth daily for high cholesterol Continue all other home medications Please follow-up with Dr. Wilks at [facility] for further management of medical disease modification treatment Please follow-up with your PCP within 1 week of discharge or follow-up at the [facility] [address] [place] [address] If your symptoms worsen or if you develop new chest pain, shortness of breath, dizziness or bleeding - please come back to the ED immediately. Admission diagnoses: #Multiple sclerosis flare #UTI, GNR #History of headaches #Constipation #Heart palpitations #History of anxiety #History of migraines #History of GERD Case discussed with my attending Dr. Rhina Mosquera MD PGY-1 Status at Discharge Overall status at discharge: patient is progressing back to baseline Time Spent with Patient Time attestation: Total time spent providing and/or coordinating discharge services: Time spent: Greater than 30 minutes Exam Vital Signs Temp Pulse Resp BP Pulse Ox O2 Del Method 97.4 F 67 19 150/83 H 92 L Room Air 01/06/25 12:00 01/06/25 12:00 01/06/25 12:00 01/06/25 12:00 01/06/25 12:00 01/06/25 12:00 Narrative Exam General: Awake and in no acute distress. Conversational and non-toxic appearing. HEENT: Normocephalic, atraumatic, mucous membranes moist. Heart: Regular rate and rhythm, normal S1 and S2, no murmurs. Lungs: Clear to auscultation with no wheezing or crackles. Abdomen: Soft, nondistended, nontender, positive bowel sounds. No guarding or rebound tenderness. Neurologic: Alert and oriented x3. Unable to move lower extremities, rigid. Left upper extremity contracted, chronic. 5/5 strength in right upper extremity. Sensation intact throughout. Extremities: Swollen ankles bilaterally but no pitting edema appreciated. Skin: No rash or ecchymoses. Discharge Plan Plan Patient Disposition: Xfer Skilled Nsg Fac (SNF) Care Plan Goals: Complete steroid regimen for MS flare with prednisone as listed Take atorvastatin 20mg tablet by mouth daily for high cholesterol Continue all other home medications Please follow-up with Dr. Lowry for hyperdyamic flow seen on ECHO Please follow-up with Dr. Wilks at [facility] for further management of medical disease modification treatment Please follow-up with your PCP within 1 week of discharge or follow-up at the [facility] [address] [place] [address] If your symptoms worsen or if you develop new chest pain, shortness of breath, dizziness or bleeding - please come back to the ED immediately. Prescriptions/Referrals Prescriptions/Med Rec: New atorvastatin 20 mg Tablet 20 mg PO HS 30 Days Qty: 30 0RF prednisone 20 mg tablet See Taper PO QDAY Qty: 30 0RF Taper: Prednisone Taper 80 mg DAILY for 3 Days and 0 Hour 60 mg DAILY for 3 Days and 0 Hour 40 mg DAILY for 3 Days and 0 Hour 20 mg DAILY for 3 Days and 0 Hour Continued ibuprofen 800 MG tablet 800 mg PO Q6HR PRN (Reason: PAIN) Qty: 0 lorazepam 0.5 MG tablet 0.5 mg PO BID PRN (Reason: Anxiety) Qty: 0 ergocalciferol (vitamin D2) 1,250 mcg (50,000 unit) capsule 1,250 mcg PO .once a week pantoprazole 40 mg tablet,delayed release (DR/EC) 40 mg PO .once a day Discontinued fluconazole 150 mg tablet 150 mg PO QDAY sulfamethoxazole-trimethoprim 800-160 mg tablet 1 tab PO BID Patient Comments: TAKE ONE TABLET BY MOUTH TWICE DAILY FOR INFECTION Referrals: Zach Pacheco [Primary Care Provider] Patient/Caregiver Discharge Instructions Print Language: Central African Stand Alone Forms: Rissa Award Info., Patient Portal Info Letter Discharge Order Discharge Orders: Discharge (Routine); Ordered 01/06/25 Ordered By: Ronak Tanner Quality Discharge Quality Measures VTE prophylaxis
[2025-01-06 13:54] VITALS: BMI 30.1
[2025-01-06 16:00] VITALS: BP 149/75; PULSE 70; PULSE 72; RESP 18; TEMP 36.1; O2SAT 94
[2025-01-06] MEDS: IBUPROFEN TAB 400 MG TABLET 800 MG PO (16:28)
--- NOTE | 2025-01-06 17:26 | ESPR_ITS ---
Documentation for date of: 01/06/25 Subjective Subjective Interval history: Patient examined at bedside. No events overnight reported. She denies any more chest pain. Symptoms are improving, patient has completed IV course of steroids for MS flare. To be discharged with medroldose pack. She is being transferred to [facility] for acute rehab. Strenght and movement improving in left extremities. Still has ridgidity in left arm on passive movement. Exam Vital Signs Temp Pulse Resp BP Pulse Ox O2 Del Method 97.0 F 72 18 149/75 H 94 L Room Air 01/06/25 16:00 01/06/25 16:00 01/06/25 16:00 01/06/25 16:00 01/06/25 16:00 01/06/25 16:00 Narrative Exam General: Awake and in no acute distress. Conversational and non-toxic appearing. HEENT: Normocephalic, atraumatic, mucous membranes moist. Heart: Regular rate and rhythm, normal S1 and S2, no murmurs. Lungs: Clear to auscultation with no wheezing or crackles. Abdomen: Soft, nondistended, nontender, positive bowel sounds. No guarding or rebound tenderness. Neurologic: Alert and oriented x3. Unable to move lower extremities, rigid. Left upper extremity contracted, chronic. 5/5 strength in right upper extremity. Sensation intact throughout. Extremities: Swollen ankles bilaterally but no pitting edema appreciated. Skin: No rash or ecchymoses. Objective Labs 01/06/25 08:45 01/06/25 08:45 Labs: Laboratory Results - last 24 hr 01/06/25 08:45 WBC 7.0 RBC 4.11 Hgb 13.3 Hct 39.6 MCV 96 MCH 32.4 MCHC 33.6 RDW Std Deviation 48.5 H Plt Count 268 Neut % (Auto) 67 Lymph % (Auto) 19 [place] % (Auto) 13 H Eos % (Auto) 0 Baso % (Auto) 0 Neut # (Auto) 4.7 Lymph # (Auto) 1.3 [place] # (Auto) 0.9 H Eos # (Auto) 0.0 Baso # (Auto) 0.0 Immature Gran # (Auto) 0.05 H Absolute Nucleated RBC 0.00 Immature Gran % 1 H Nucleated RBC % 0 Sodium 142 Potassium 3.2 L Chloride 102 Carbon Dioxide 28.5 Anion Gap 12 BUN 16 Creatinine 0.6 Estim Creat Clear Calc 123.2 eGFR > 60 BUN/Creatinine Ratio 27 H Glucose 112 H Calculated Osmolality 285 Calcium 8.9 Quality Measures Quality Measures VTE prophylaxis Assessment & Plan Assessment Current Active Medications: Generic Name Dose Route Start Last Admin Trade Name Freq PRN Reason Stop Dose Admin Atorvastatin Calcium 20 mg 01/04/25 21:00 01/05/25 20:21 Atorvastatin Calcium 20 Mg Tablet PO 02/03/25 20:59 Not Given HS ELVER Ergocalciferol ( 0 ea 01/05/25 18:30 01/05/25 18:35 Vitamin D2) 1.25 Mg PO 02/04/25 18:29 1 capsule Gelcapsule QWEEK ELVER Administration Docusate Sodium 100 mg 01/04/25 16:45 01/06/25 09:28 Docusate Sod 100 Mg Capsule PO 02/03/25 16:44 Not Given QDAY [facility] Protocol Heparin Sodium (Porcine) 5,000 unit 01/02/25 21:00 01/06/25 08:39 Heparin Sod Inj 5000 Unit/Ml Vial SC 01/16/25 20:59 5,000 unit Q12HR ELVER Administration Ceftriaxone Sodium/Dextrose 1 gm in 50 mls @ 100 mls/hr 01/03/25 15:16 01/06/25 08:40 Rocephin/D5w 1gm Iv Premix IV 01/10/25 15:15 100 mls/hr QDAY ELVER Administration Ibuprofen 800 mg 01/04/25 15:53 01/06/25 16:28 Ibuprofen Tab 400 Mg Tablet PO 02/03/25 15:52 800 mg Q8HR PRN Administration Headaches Lorazepam 0.5 mg 01/02/25 16:07 01/06/25 07:38 Lorazepam 0.5 Mg Tablet PO 01/07/25 16:06 0.5 mg Q8HR PRN Administration AGITATION OR ANXIETY Nitroglycerin 0.4 mg 01/05/25 08:45 Nitroglycerin 0.4 Mg Subl Btl #25 SL Q5MIN PRN CHEST PAIN Ondansetron HCl 4 mg 01/02/25 15:04 Ondansetron Inj 2 Mg/Ml Inj 2 Ml IVP 02/01/25 15:03 Q6H PRN NAUSEA OR VOMITING Protocol Pantoprazole Sodium 40 mg 01/03/25 09:00 01/06/25 08:39 Pantoprazole 40 Mg Tablet PO 02/02/25 08:59 40 mg QDAY ELVER Administration Plan Patient is a 49-year-old female with past medical history of multiple sclerosis since 2002, migraines, recurrent UTIs who presents on 01/02 for chief complaint of shortness of breath that started around 4 AM this morning, accompanied with locking of her extremities. Admitted for MS flare, will be treated with IV steroids. #Multiple sclerosis flare #Hx MS since 2002 Presented with shortness of breath and rigid extremities. Per patient, symptoms are similar to prior flareup episodes of MS, last episode 2022. Has been diagnosed with MS since 2002, previous MRI workup completed and confirms diagnosis. Follows Dr. Wilks at [facility], currently not on any treatment. Repeat MRI confirms demyelinating disease, no acute changes concerning for stroke. Neck MRI negative for stenosis. Plan: ? IV Solu-Medrol 1 g daily over 4 hours for 3 day (01/02-01/03) - Will discharge with Medrol dosepak ? Physical therapy - Anticipate discharge to [facility] inpatient rehab center #UTI likely secondary to gram-negative bacteria # Heart palpitations # History of anxiety # History of migraines # History of GERD Primary care team to manage above conditions and ongoing care needs. The patient's management plan was discussed with my attending physician Dr. Shaffer. Leela Renee, PGY-2 Attending Provider Attestation/Addendum I personally have seen and examined the patient at the bedside and I agree with resident's findings, assessment and plan of care. Patient presenting symptoms are most consistent with MS exacerbation, improved to some extent with IV steroids. Patient is stable for discharge from neurology standpoint to [facility]. Continue with the current management with Medrol Dosepak with GI prophylaxis. She will follow-up with MS specialist Dr. Wilks in [facility].
== END 2025-01-06 18:23 | disposition skilled nursing facility (03) | DRG 59 ==
LOC: SERX 13:56 → SERHOLD 15:16 → S3NX 17:03
PROVIDERS: Admitting Provider Student in an Organized Health Care Education/Training Program; Emergency Provider Family Medicine; PCP Internal Medicine; Visit Provider Internal Medicine
DX: G35.D Multiple sclerosis, unspecified (principal); N39.0 Urinary tract infection, site not specified; G43.909 Migraine, unspecified, not intractable, without status migrainosus; Z87.440 Personal history of urinary (tract) infections; R32 Unspecified urinary incontinence; Z87.891 Personal history of nicotine dependence; F12.90 Cannabis use, unspecified, uncomplicated; N20.0 Calculus of kidney; R00.2 Palpitations; F41.9 Anxiety disorder, unspecified; E78.5 Hyperlipidemia, unspecified; K59.00 Constipation, unspecified; K21.9 Gastro-esophageal reflux disease without esophagitis; Z88.5 Allergy status to narcotic agent; Z88.8 Allergy status to other drugs, medicaments and biological substances
CPT/HCPCS: 36415; 70547; 70548; 70553; 71045; 74176; 80048; 80053; 80061; 80307; 81001; 83735; 83880; 84100; 84439; 84443; 84484; 85025; 85379; 85610; 85730; 87077; 87086; 87186; 87502; 87811; 93005; 93225; 93306; 96372; 96374; 96375; 96376; 97162; 99285; A9577; J0696; J1644; J2250; J2405; J2470; J2919; J3490; J7050; J7512; A9270

== ENCOUNTER → 2025-03-08 | Outpatient (CLI) | payer MEDICARE, MEDICAID, SELFPAY ==
[2025-03-08 17:41] LABS: Basophils # (Auto) 0.0 Thou/mm3 (0.0-0.2); Basophils % (Auto) 1 % (0-2.5); Eosinophils # (Auto) 0.1 Thou/mm3 (0.0-0.5); Eosinophils % (Auto) 3 % (0-10); Hematocrit 41.8 % (36.0-46.0); Hemoglobin 13.9 g/dL (12.0-16.0); Immature Granulocytes Auto 0.01 Thou/mm3 (0.00-0.00); Lymphocytes # (Auto) 1.4 Thou/mm3 (1.0-4.8); Lymphocytes % (Auto) 37 % (10-50); Mean Corpuscular HGB Conc 33.3 g/dl (31.0-37.0); Mean Corpuscular Hemoglobin 31.7 pg (25.0-35.0); Mean Corpuscular Volume 95 fL (80-100); Monocytes # (Auto) 0.4 Thou/mm3 (0.0-0.8); Monocytes % (Auto) 11 % (0-12); Neutrophils # (Auto) 1.9 Thou/mm3 (1.8-7.7); Neutrophils % (Auto) 48 % (37-80); Nucleated Red Blood Cell # 0.00 Thou/mm3 (0.00-0.00); Nucleated Red Blood Cell % 0 /100 WBC (0); Platelet Count 313 Thou/mm3 (140-440); RDW Standard Deviation 45.0 fL (36.4-46.3); Red Blood Count 4.38 Miln/mm3 (4.00-5.20); White Blood Count 3.8 Thou/mm3 (3.6-11.0)
[2025-03-08 18:00] LABS: Alanine Aminotransferase 19 U/L (10-49); Albumin, Serum 4.5 gm/dL (3.5-5.0); Albumin/Globulin Ratio 1.7 (1.2-2.2); Alkaline Phosphatase 63 U/L (46-116); Anion Gap 10 (7-16); Aspartate Amino Transferase 24 U/L (0-34); BUN/Creatinine Ratio 17 Ratio (12-20); Bilirubin,Total 0.6 mg/dL (0.3-1.2); Blood Urea Nitrogen 10 mg/dL (9-23); Calcium 9.6 mg/dL (8.3-10.6); Calcium (Corrected) 9.6 mg/dL (8.5-10.1); Carbon Dioxide 25.9 mMol/L (20.0-31.0); Chloride 106 mMol/L (98-107); Creatinine (Component) 0.6 mg/dL (0.6-1.3); Globulin 2.6 gm/dL (2.3-3.5); Glucose 99 mg/dL (74-106); Osmolality,Calculated 282 (275-295); Potassium 3.6 mMol/L (3.4-5.1); Sodium 142 mMol/L (136-145); Thyroid Stimulating Hormone 2.16 uIU/mL (0.55-4.78); Total Protein 7.1 gm/dL (5.7-8.2); eGFR > 60 See Note
[2025-03-08 19:17] LABS: Vitamin B12 240 pg/mL (211-911)
== END | disposition home or self-care (01) ==
LOC: COPL 16:29
PROVIDERS: PCP Internal Medicine; Referring Provider Internal Medicine; Visit Provider Internal Medicine
DX: F41.8 Other specified anxiety disorders (principal); I67.9 Cerebrovascular disease, unspecified; G43.119 Migraine with aura, intractable, without status migrainosus; G35.D Multiple sclerosis, unspecified
CPT/HCPCS: 36415; 80053; 80061; 81001; 82607; 83036; 84443; 85025

== ENCOUNTER → 2025-03-09 | Outpatient (CLI) | payer MEDICARE, MEDICAID, SELFPAY ==
[2025-03-09 16:33] LABS: Collection Type, Urine Clean Catch
[2025-03-09 17:20] LABS: Bacteria,Urine 1+; Bilirubin,Urine Negative (Negative); Blood,Urine 1+ (Negative); Color,Urine Yellow (Lt Yel-Yel); Glucose, Urine Negative (Negative); Ketones,Urine 1+ (Negative); Leukocyte Esterase,Urine Positive (Negative); Nitrite,Urine Positive (Negative); PH,Urine 5.5 (5.0-7.0); Protein,Urine Negative (Neg - Trace); RBC,Urine 6 /hpf (0-3); Specific Gravity,Urine 1.023 (1.001-1.035); Squamous Epithelial Cell,Urine 5 /hpf (0-5); Urobilinogen,Urine Negative mg/dL (0.0-1.0); WBC,Urine 23 /hpf (0-5)
[2025-03-09 17:42] LABS: Clarity,Urine Hazy (Clear/Hazy); Culture Indicated,Urine Yes
== END | disposition home or self-care (01) ==
LOC: SLDO 16:26
PROVIDERS: PCP Internal Medicine; Referring Provider Internal Medicine; Visit Provider Internal Medicine
DX: F41.8 Other specified anxiety disorders (principal); I67.9 Cerebrovascular disease, unspecified; G43.119 Migraine with aura, intractable, without status migrainosus; G35.D Multiple sclerosis, unspecified
CPT/HCPCS: 81001; 87077; 87086; 87186

== ENCOUNTER 2025-03-13 15:58 | Emergency (ER) | payer MEDICARE, MEDICAID, SELFPAY ==
[2025-03-13 16:02] VITALS: PULSE 95; RESP 19; O2SAT 97
[2025-03-13 16:04] VITALS: BP 132/79; PULSE 87; RESP 18; TEMP 36.7; O2SAT 95
--- NOTE | 2025-03-13 16:50 | PD.EDRME ---
Rapid Medical Screening Exam RME Arrival date/time: 03/13/25 15:58 Chief Complaint: General Adult/Misc Complain Vital signs: Vital Signs Temperature 98.1 F 03/13/25 16:04 Pulse Rate 87 03/13/25 16:04 Respiratory Rate 18 03/13/25 16:04 Blood Pressure 132/79 H 03/13/25 16:04 Pulse Oximetry (%) 95 03/13/25 16:04 Oxygen Delivery Method Room Air 03/13/25 16:04 RME Narrative: 49-year-old female with history of multiple sclerosis who believes that she is having an MS flare due to bilateral leg pain. She has also been battling a urinary tract infection. She is unsure whether or not the infection can be provoking the flare. She does have a history of stroke with some minor residual left upper extremity weakness. Exam: All vital signs are stable. Patient is alert and oriented. Clinical Impression: Bilateral lower extremity pain with possible multiple sclerosis flare and UTI
[2025-03-13 17:23] LABS: Basophils # (Auto) 0.0 Thou/mm3 (0.0-0.2); Basophils % (Auto) 0 % (0-2.5); Eosinophils # (Auto) 0.1 Thou/mm3 (0.0-0.5); Eosinophils % (Auto) 3 % (0-10); Hematocrit 39.9 % (36.0-46.0); Hemoglobin 13.3 g/dL (12.0-16.0); Immature Granulocytes Auto 0.02 Thou/mm3 (0.00-0.00); Lymphocytes # (Auto) 1.2 Thou/mm3 (1.0-4.8); Lymphocytes % (Auto) 27 % (10-50); Mean Corpuscular HGB Conc 33.3 g/dl (31.0-37.0); Mean Corpuscular Hemoglobin 31.8 pg (25.0-35.0); Mean Corpuscular Volume 96 fL (80-100); Monocytes # (Auto) 0.4 Thou/mm3 (0.0-0.8); Monocytes % (Auto) 8 % (0-12); Neutrophils # (Auto) 2.8 Thou/mm3 (1.8-7.7); Neutrophils % (Auto) 61 % (37-80); Nucleated Red Blood Cell # 0.00 Thou/mm3 (0.00-0.00); Nucleated Red Blood Cell % 0 /100 WBC (0); Platelet Count 280 Thou/mm3 (140-440); RDW Standard Deviation 44.6 fL (36.4-46.3); Red Blood Count 4.18 Miln/mm3 (4.00-5.20); White Blood Count 4.5 Thou/mm3 (3.6-11.0)
[2025-03-13 17:31] LABS: Alanine Aminotransferase 13 U/L (10-49); Albumin, Serum 4.0 gm/dL (3.5-5.0); Albumin/Globulin Ratio 1.6 (1.2-2.2); Alkaline Phosphatase 58 U/L (46-116); Anion Gap 9 (7-16); Aspartate Amino Transferase 19 U/L (0-34); BUN/Creatinine Ratio 15 Ratio (12-20); Bilirubin,Total 0.5 mg/dL (0.3-1.2); Blood Urea Nitrogen 9 mg/dL (9-23); Calcium 9.0 mg/dL (8.3-10.6); Calcium (Corrected) 9.0 mg/dL (8.5-10.1); Carbon Dioxide 26.6 mMol/L (20.0-31.0); Chloride 108 mMol/L (98-107); Creatine Kinase 40 U/L (34-171); Creatinine (Component) 0.6 mg/dL (0.6-1.3); Globulin 2.5 gm/dL (2.3-3.5); Glucose 98 mg/dL (74-106); Osmolality,Calculated 285 (275-295); Potassium 4.0 mMol/L (3.4-5.1); Sodium 144 mMol/L (136-145); Total Protein 6.5 gm/dL (5.7-8.2); eGFR > 60 See Note
--- NOTE | 2025-03-13 18:13 | PD.EDADULT ---
ED General RME/HPI General Chief complaint: General Adult/Misc Complain Stated complaint: MS FLARE UP Time Seen by Provider: 03/13/25 18:58 Arrival date/time: 03/13/25 15:58 RME / HPI RME / HPI narrative: 49-year-old female with history of multiple sclerosis who believes that she is having an MS flare due to bilateral leg pain. She has also been battling a urinary tract infection. She is unsure whether or not the infection can be provoking the flare. She does have a history of stroke with some minor residual left upper extremity weakness. Dr. Staton?s Main ED Evaluation: 49yo female with a history of MS, CVA with residual right-sided deficits presenting with recurrent UTI and was referred by PMD. Patient was admitted here in 12/2024 and was on antibiotics for UTI and subsequently had a MS flare-up, was referred to [facility] and found to be multi-drug resistant and treated with phosphomycin. Patient was subsequently discharged 6 weeks [employer] and now presents with recurrent frequency, urgency, and dysuria. No fever, but reports associated chills and episodic diaphoresis. No flank pain. PMH includes childhood asthma. PSH includes appendectomy, hysterectomy, tubal litigation. Nondrinker, nonsmoker. Related Data Home Medications ?Medication ?Instructions ?Recorded ?Confirmed ibuprofen 800 mg tablet 800 mg PO Q6HR PRN PAIN #0 tabs 07/26/14 01/02/25 lorazepam 0.5 mg tablet 0.5 mg PO BID PRN Anxiety #0 tabs 07/26/14 01/02/25 ergocalciferol (vitamin D2) 1,250 1,250 mcg PO .once a week 01/02/25 01/04/25 mcg (50,000 unit) capsule pantoprazole 40 mg tablet,delayed 40 mg PO .once a day 01/02/25 01/04/25 release Previous Rx's ?Medication ?Instructions ?Recorded prednisone 20 mg tablet See Taper PO QDAY #30 tabs 01/06/25 levofloxacin 500 mg tablet 500 mg PO Q24H #10 tabs 03/13/25 phenazopyridine 100 mg tablet 100 mg PO TID PRN pain 9 doses #9 03/13/25 (Pyridium) tabs Allergies Allergy/AdvReac Type Severity Reaction Status Date / Time codeine Allergy Severe VOMITING Verified 03/13/25 16:09 AND HIVES erythromycin base Allergy Severe VOMITING Verified 03/13/25 16:09 AND HIVES nitrofurantoin (From Allergy Intermediate Vomiting Verified 03/13/25 16:09 Macrobid) adhesive tape Allergy Verified 03/13/25 16:09 promethazine AdvReac Severe PANIC Verified 03/13/25 16:09 ATTACKS hydromorphone AdvReac Intermediate SEVERE Verified 03/13/25 16:09 NAUSEA AND VOMITING morphine AdvReac Unknown SEVERE Verified 03/13/25 16:09 NAUSEA AND VOMITING Ocrevis Allergy Unknown Uncoded 03/13/25 16:09 Review of Systems Review of Systems Systems Reviewed: All systems reviewed, normal except as documented ED Exam Narrative Physical exam: GENERAL APPEARANCE: alert and oriented x 4, well-developed, well-nourished, nontoxic, resting comfortable in the gurney, no acute distress VITALS: All vitals were reviewed and the pulse ox is 95% on room air, which is normal according to my interpretation. HEENT: Normocephalic, atraumatic; pupils equal, round, reactive to light; EOMI; mucous membranes pink, moist; oropharynx clear NECK: Supple LUNGS: CTABL; no wheezes, no rales, no rhonchi HEART: Regular rate, regular rhythm; normal S1, S2; no murmurs ABDOMEN: non distended; normal BS; soft, no tenderness, no guarding, no rebound; no masses, no organomegaly, no hernia BACK: no CVA tenderness EXTREMITIES: atraumatic; no edema; contractures to the LUE and LLE with diminished motor strength NEUROLOGIC: awake; alert and oriented x4; cranial nerves II-XII grossly intact; no focal sensory or motor deficits PSYCHIATRIC: appropriate mood and affect SKIN: warm, dry, normal color; no rashes Course Quality Measures none Orders Category Date Time Status CBC Stat Lab 03/13/25 17:07 Completed CK [Creatine Kinase] Stat Lab 03/13/25 17:07 Completed CMP [Comprehensive Metabolic Panel] Stat Lab 03/13/25 17:07 Completed UA [Urinalysis] Stat Lab 03/13/25 18:31 Completed Ketorolac Inj [Toradol Inj] Med 03/13/25 20:07 Discontinued 15 mg IVP X1 ONE Sodium Chloride 0.9% 1000 ml [Ns] 1,000 ml Med 03/13/25 19:33 Discontinued IV 999 mls/hr levoFLOXacin/D5W 750MG IVPB [Levaquin Ivpb] Med 03/13/25 19:32 Discontinued 750 mg in 150 ml IV X1 Vital Signs Vital signs: Vital Signs Temperature 98.1 F 03/13/25 16:04 Pulse Rate 87 03/13/25 16:04 Respiratory Rate 18 03/13/25 16:04 Blood Pressure 132/79 H 03/13/25 16:04 Pulse Oximetry (%) 95 03/13/25 16:04 Oxygen Delivery Method Room Air 03/13/25 16:04 Discharge Plan Plan Patient Disposition: HOME (Self Care) Discharge Disposition comment: Stable Prescriptions/Referrals Prescriptions/Med Rec: New levofloxacin 500 mg tablet 500 mg PO Q24H Qty: 10 0RF phenazopyridine [Pyridium] 100 mg tablet 100 mg PO TID PRN (Reason: pain) Qty: 9 0RF No Action ibuprofen 800 MG tablet 800 mg PO Q6HR PRN (Reason: PAIN) Qty: 0 lorazepam 0.5 MG tablet 0.5 mg PO BID PRN (Reason: Anxiety) Qty: 0 ergocalciferol (vitamin D2) 1,250 mcg (50,000 unit) capsule 1,250 mcg PO .once a week pantoprazole 40 mg tablet,delayed release (DR/EC) 40 mg PO .once a day prednisone 20 mg tablet See Taper PO QDAY Qty: 30 0RF Taper: Prednisone Taper 80 mg DAILY for 3 Days and 0 Hour 60 mg DAILY for 3 Days and 0 Hour 40 mg DAILY for 3 Days and 0 Hour 20 mg DAILY for 3 Days and 0 Hour Referrals: Olivier Charlton MD [Primary Care Provider, Family Practice] - In 1 week Problem List Clinical Impression: Recurrent urinary tract infection Impression comment: Recurrent UTI Patient/Caregiver Discharge Instructions Discharge Activity: activity as tolerated Diet Instructions: Force fluids Education Materials: Urinary Tract Infections in Women Additional Instructions: Force fluids/medications as directed. Follow-up with primary care doctor in 5 to 7 days for repeat urinalysis. Return for fevers chills vomiting or worsening illness. Print Language: Guinean Stand Alone Forms: Rissa Award Info., Patient Portal Info Letter MDM Narrative MDM hospital course (for use when minimal MDM required): Scribe Attestation: 03/13/25 - Rosemarie Xiong am scribing for and in the presence of Dr. Staton. 49yo female with a history of MS, CVA with residual right-sided deficits presenting with recurrent UTI and was referred by PMD. Patient was admitted here in 12/2024 and was on antibiotics for UTI and subsequently had a MS flare-up, was referred to [facility] and found to be multi-drug resistant and treated with phosphomycin. Patient was subsequently discharged 6 weeks [employer] and now presents with recurrent frequency, urgency, and dysuria. Please see PE findings. Lab markers demonstrate WBC count 4.5, normal Hgb, no left shift or bandemia. Chemistries are unremarkable. UA demonstrates positive nitrate reaction and bacteriuria. Review of EMR showed urine culture from 03/09/25 was positive for Klebsiella, however per sensitivities, patient will be placed on Levaquin IV here and discharged home same on PO. Patient is to follow-up with PCP in 5-7 days for repeat UA with precaution instructions in place. Dx: recurrent UTI Clinical Information Provided by: patient Medical Records reviewed [facility] (Per chart review, patient was admitted here on 03/04/25 for MS exacerbation.) Meds/Rx considered, not ordered None Labs/Rad/Tests considered, not ordered None Chronic Illness/Social Conditions Explain: Hx MS Labs Labs: interpreted by in Imaging Imaging interpretation: none Medication Administration(s) Medication Administration History Discontinued Medications Levofloxacin/Dextrose (Levaquin Ivpb) 750 mg in 150 mls @ 100 mls/hr IV X1 ONE Stop: 03/13/25 21:01 Last Admin: 03/13/25 19:58 Dose: 100 mls/hr Documented By: AMANDO Sodium Chloride (Ns) 1,000 mls @ 999 mls/hr IV .Q1H1M ONE Stop: 03/13/25 20:33 Last Infusion: 03/13/25 21:03 Dose: Infused Documented By: Admin: 03/13/25 19:59 Dose: 999 mls/hr Documented By: AMANDO Ketorolac Tromethamine (Ketorolac Inj 30 Mg/Ml Vial) 15 mg IVP X1 ONE Stop: 03/13/25 20:08 Last Admin: 03/13/25 20:17 Dose: 15 mg Documented By: AMANDO see above Diagnosis Differential Diagnosis ED Complaint MDM: UTI, dehydration, electrolyte abnormality
[2025-03-13 18:32] VITALS: BP 137/68; PULSE 79; RESP 17; TEMP 36.8; O2SAT 96
[2025-03-13 18:35] LABS: Collection Type, Urine Voided
[2025-03-13 18:42] LABS: Bacteria,Urine 1+; Bilirubin,Urine Negative (Negative); Blood,Urine Negative (Negative); Clarity,Urine Turbid (Clear/Hazy); Color,Urine Lt-Yellow (Lt Yel-Yel); Glucose, Urine Negative (Negative); Ketones,Urine Negative (Negative); Leukocyte Esterase,Urine Positive (Negative); Nitrite,Urine Positive (Negative); PH,Urine 7.0 (5.0-7.0); Protein,Urine Negative (Neg - Trace); RBC,Urine 2 /hpf (0-3); Specific Gravity,Urine 1.014 (1.001-1.035); Squamous Epithelial Cell,Urine 5 /hpf (0-5); Urobilinogen,Urine Negative mg/dL (0.0-1.0); WBC,Urine 4 /hpf (0-5)
[2025-03-13] MEDS: SODIUM CHLORIDE 0.9% 1000 ML 1,000 ML 999 ML IV (19:59)
[2025-03-13] MEDS: KETOROLAC INJ 30 MG/ML VIAL 15 MG IVP (20:17)
[2025-03-13 21:21] VITALS: BP 117/75; PULSE 88; RESP 16; TEMP 36.6; O2SAT 97
== END 2025-03-13 21:42 | disposition home or self-care (01) ==
PROVIDERS: Emergency Medicine; Emergency Provider Emergency Medicine; PCP Family Medicine
DX: N39.0 Urinary tract infection, site not specified (principal)
CPT/HCPCS: 36415; 80053; 81001; 82550; 85025; 96361; 96374; 99283; J1885; J1956; J7030

== ENCOUNTER → 2025-04-04 | Outpatient (CLI) | payer MEDICARE, MEDICAID, SELFPAY ==
[2025-04-04 16:58] LABS: Collection Type, Urine Clean Catch
[2025-04-04 17:26] LABS: Bilirubin,Urine Negative (Negative); Blood,Urine Negative (Negative); Clarity,Urine Clear (Clear/Hazy); Color,Urine Yellow (Lt Yel-Yel); Culture Indicated,Urine Not Indicated; Glucose, Urine Negative (Negative); Ketones,Urine Negative (Negative); Leukocyte Esterase,Urine Negative (Negative); Nitrite,Urine Negative (Negative); PH,Urine 5.5 (5.0-7.0); Protein,Urine Negative (Neg - Trace); RBC,Urine 2 /hpf (0-3); Specific Gravity,Urine 1.024 (1.001-1.035); Squamous Epithelial Cell,Urine 10 /hpf (0-5); Urobilinogen,Urine Negative mg/dL (0.0-1.0); WBC,Urine 4 /hpf (0-5)
== END | disposition home or self-care (01) ==
LOC: SLDO 16:54
PROVIDERS: PCP Internal Medicine; Referring Provider Internal Medicine; Visit Provider Internal Medicine
DX: N39.0 Urinary tract infection, site not specified (principal)
CPT/HCPCS: 81001